=== PATIENT | male | born 1985 | race Caucasian/White ===

== ENCOUNTER 2016-08-04 13:06 | Outpatient (CLI) | payer OTHER ==
[2016-08-04] MEDS ORDERED: IOTHALAMATE MEGLUMINE 50 ML VIAL IVP ONE ×2 (13:53)
[2016-08-04] MEDS ORDERED: GADOPENTETATE DIMEGLUMINE 5 ML VIAL IVP ONE ×2 (13:53)
[2016-08-04] MEDS ORDERED: LIDOCAINE 1% 50 ML MDV SUBQ ONE ×2 (13:53)
[2016-08-04] MEDS ORDERED: BUFFERED LIDOCAINE 10 ML SYRINGE IU ONE (13:53)
--- NOTE | 2016-08-04 14:34 | XRAY Report ---
FLUOROSCOPICALLY GUIDED RIGHT HIP INJECTION FOR MR ARTHROGRAM: 08/04/2016 CLINICAL INDICATION: Right hip pain. FINDINGS: Following obtaining informed consent, the patient's right hip was prepped and draped in th e usual sterile fashion. The skin and soft tissue was anesthetized with lidocaine. A spinal needle wa s inserted into the right hip joint, and following confirmation of needle positioning, a combination of Iodinated contrast, dilute gadolinium, and lidocaine was injected intraarticularly. The patient to lerated the procedure well. No immediate complications. Spot image reveals no evidence of contrast ex travasation. IMPRESSION: SUCCESSFUL RIGHT HIP INJECTION FOR MR ARTHROGRAM. FLUOROSCOPY TIME: 44 SECONDS; 1 SPOT IMAGE OBTAINED. JOB #: [id number] EXT JOB #:[id number]
--- NOTE | 2016-08-04 16:01 | MRI Report ---
EXAM: RIGHT HIP MRI ARTHROGRAM WITH CONTRAST EXAM DATE: 08/04/2016 02:32 PM. CLINICAL HISTORY: Pain in right hip after running marathon in May 2016. Worsening pain. COMPARISON: None. TECHNIQUE: Multiplanar, multisequence T1-weighted and fluid-sensitive, small yjenb-[id number]-ddbo sequences of the hip and large ohjmw-pg-dlvd sequences of the pelvis after an arthrographic injection of dilute gadolinium, dictated under a separate exam. Other: None. FINDINGS: Bones and articular surfaces: There is contrast material within the right hip joint. The right hip la steffany appears intact. No labral tear identified. No paralabral cyst formation. No significant articula r cartilage defects are seen. No evidence of acute fracture or stress reaction. Sacroiliac joints vlad ear symmetric and within normal limits. Musculotendinous structures: There is prominent focal edema between the right greater trochanter and the overlying iliotibial band. The gluteus medius and minimus are insertions otherwise appear normal. No muscle atrophy or fatty replacement. Miscellaneous: No free fluid within the pelvis. No pathologic lymphadenopathy. Within or adjacent to the inferior margin of the prostate to the right of midline, there is a 6 x 6 x 8 mm high T2 signal p ossible cystic focus, which may be located within the lower prostate or in the region of the urogenit al diaphragm. Potential considerations include Cowper's gland cyst, less likely urethral diverticulum , utricle cyst or possibly a dilated venous structure. IMPRESSION: 1. Localized soft tissue edema and/or fluid signal in the region of the trochanteric bursa consistent with moderate trochanteric bursitis. 2. No evidence of hip labral tear or significant arthritic change. 3. Tiny high signal possible cystic focus noted at or adjacent to the inferior margin of the prostate . Considerations may include a Cowper's gland cyst, less likely urethral diverticulum, utricle cyst o r dilated venous structure. If the patient develops urinary symptoms, further workup could be pursued . [facility] Referring Provider Line: [phone] SITE ID: [id number]
== END 2016-08-04 13:07 | disposition home or self-care (01) ==
LOC: DI 13:06
PROVIDERS: ATTEND Orthopaedic Surgery
DX: M25.551 Pain in right hip (principal); R60.0 Localized edema
CPT/HCPCS: 20610; 73722; 77002; Q9961

== ENCOUNTER 2017-01-13 14:57 | Emergency (ER) | payer OTHER ==
[2017-01-13 15:06] VITALS: BP 141/88
[2017-01-13] MEDS ORDERED: LIDOCAINE 1% 2 ML VIAL ONE (15:51)
--- NOTE | 2017-01-13 16:17 | ED Physician Documentation ---
PD HPI UPPER EXT INJURY - Stated complaint Stated Complaint: L FINGER LAC - Chief complaint Chief Complaint: Laceration - History obtained from History obtained from: Patient, Family - History of Present Illness Location: Left, Finger (middle) Type of injury: Laceration Where injury occurred: Home Timing - onset: Today Timing - duration: Hours Timing - details: Abrupt onset, Still present Improved by: Rest, Immobilization Worsened by: Moving, Palpating Associated symptoms: No: Weakness, Numbness, Tingling Similar symptoms before: Diagnosis (laceration) Recently seen: Not recently seen - Additonal information Additional information: 31-year-old male was carrying a glass out to his car when he went to bring it back inside he caught it on something and it broke and lacerated his left middle finger. Review of Systems Constitutional: denies: Fever Respiratory: denies: Cough GI: denies: Vomiting Skin: reports: Laceration (s) Musculoskeletal: reports: Extremity pain Neurologic: denies: Generalized weakness, Focal weakness, Numbness PD PAST MEDICAL HISTORY - Past Medical History Past Medical History: Yes Cardiovascular: Arrhythmia Psych: Depression, Anxiety - Past Surgical History Past Surgical History: Yes HEENT: Myringotomy (tubes) - Present Medications Home Medications: Ambulatory Orders Medication Instructions Recorded Confirmed Fluoxetine HCl [Prozac] 20 mg PO DAILY 01/24/16 01/13/17 Valacyclovir HCl [Valtrex] 500 mg PO DAILY 01/13/17 01/13/17 - Allergies Allergies/Adverse Reactions: Allergies Allergy/AdvReac Type Severity Reaction Status Date / Time No Known Drug Allergies Allergy Verified 01/13/17 15:05 - Social History Does the pt smoke?: No Smoking Status: Never smoker Does the pt drink ETOH?: Yes ETOH Use: Wine, Beer, Liquor Does the pt have substance abuse?: No - Immunizations Immunizations are current?: Yes - POLST Patient has POLST: No PD ED PE NORMAL - Vitals Vital signs reviewed: Yes (hypertensive) - General General: Alert and oriented X 3, No acute distress, Well developed/nourished - HEENT HEENT: Atraumatic, PERRL - Respiratory Respiratory: No respiratory distress - Derm Derm: Normal color, Warm and dry, No rash - Extremities Extremities: No deformity, No edema, Other (There is a 2cm laceration to the volar surface of the left middle finger over the middle phlange. ) - Neuro Neuro: No motor deficit, No sensory deficit Eye Opening: Spontaneous Motor: Obeys Commands Verbal: Oriented GCS Score: 15 - Psych Psych: Normal mood, Normal affect Results - Vitals Vitals: Vital Signs - 24 hr 01/13/17 15:03 Temperature 36.9 C Heart Rate 77 Respiratory 18 Rate Blood Pressure 141/88 H O2 Saturation 99 Oxygen O2 Source Room air Procedures - Laceration (location) left middle finger Length in cm: 2 Wound type: Linear, Irregular, Clean Neurovascular status: Sensory intact, Motor intact, Vascular intact Tendon involvement: Tendon intact Anesthesia: Lidocaine 1% Wound Preparation: Hibiclens, Irrigated copiously NS, Wound explored, To the base Skin layer closure: Nylon, Interrupted, Size #-0 - enter number (4-0), Sutures - enter # (3) Other: Patient tolerated well, No complications, Neurovascular intact, Dressing applied, Tetanus UTD PD MEDICAL DECISION MAKING - ED course Complexity details: reviewed results, re-evaluated patient, considered differential, d/w patient ED course: finger laceration is sutured. Departure - Departure Disposition: 01 Home, Self Care Clinical Impression: Laceration of left middle finger Qualifiers: Encounter type: initial encounter Damage to nail status: without damage Foreign body presence: without foreign body Qualified Code(s): S61.213A - Laceration without foreign body of left middle finger without damage to nail, initial encounter Instructions: ED Laceration Hand Follow-Up: KATHRYN WOODY [Primary Care Provider] - Comments: sutures out in 7-10 days Today in the Emergency Department your blood pressure was elevated. This can happen from the stress of the visit itself, from a current illness or circumstance or from uncontrolled hypertension. If you take blood pressure medications take your usual mediations, have your blood pressure re-checked in an appropriate setting and follow up any elevation with your primary care doctor. Discharge Date/Time: 01/13/17 16:31
[2017-01-13] MEDS ORDERED: BACITRACIN OINT TOP ONE (16:29)
== END 2017-01-13 16:31 | disposition home or self-care (01) ==
LOC: ED 14:57
DX: S61.213A Laceration without foreign body of left middle finger without damage to nail, initial encounter (principal); W25.XXXA Contact with sharp glass, initial encounter; Y92.019 Unspecified place in single-family (private) house as the place of occurrence of the external cause; R03.0 Elevated blood-pressure reading, without diagnosis of hypertension
CPT/HCPCS: 12001; 99282; 99283; A9270

== ENCOUNTER 2017-01-19 09:35 | Day surgery (SDC) | payer OTHER ==
[2017-01-19] MEDS ORDERED: LACTATED RINGERS 1,000 ML IV ONE (09:52)
[2017-01-19] MEDS ORDERED: ACETAMINOPHEN 1,000 MG/100 ML 100 ML IV ONE ×2 (10:03→12:00)
[2017-01-19] MEDS ORDERED: ceFAZolin 2 GM/50 ML 2 GM/50 ML BAG IV ONE (10:03)
[2017-01-19] MEDS ORDERED: BUPIVACAINE 0.25% PF 30 ML VIAL SUBQ ONE ×2 (10:55→11:57)
[2017-01-19] MEDS ORDERED: PROPOFOL 200 MG/20 ML VIAL IVP ONE (12:00)
[2017-01-19] MEDS ORDERED: DEXAMETHASONE 4 MG/ML VIAL IVP ONE (12:00)
[2017-01-19] MEDS ORDERED: LIDOCAINE-MPF 2% 5 ML VIAL IM ONE (12:00)
[2017-01-19] MEDS ORDERED: ONDANSETRON 4 MG/2 ML VIAL IVP ONE (12:00)
[2017-01-19] MEDS ORDERED: MIDAZOLAM 2 MG/2 ML VIAL IVP ONE (12:00)
[2017-01-19] MEDS ORDERED: ROCURONIUM 50 MG/5 ML VIAL IVP ONE (12:00)
[2017-01-19] MEDS ORDERED: fentaNYL 100 MCG/2 ML VIAL IVP ONE (12:00)
[2017-01-19 12:54] VITALS: BP 118/69
--- NOTE | 2017-01-22 13:11 | OPERATIVE REPORT ---
ID#: [id number] PREOPERATIVE DIAGNOSES: Left long finger flexor digitorum profundus laceration. POSTOPERATIVE DIAGNOSES: Left long finger flexor digitorum profundus laceration. OPERATION PERFORMED: Left long finger flexor digitorum profundus repair. PRIMARY SURGEON: Radha Meléndez MD ANESTHESIA PROVIDER: Amaris Anaya CRNA CIRCULATING NURSE: Tiffany Humphrey. AIRPORT MANAGER: Camila Trotter RN, BSN. ANESTHESIA: General via endotracheal tube. IV FLUIDS: 900 mL lactated Ringer's. ESTIMATED BLOOD LOSS: 1 mL ANTIBIOTICS: Ancef 2gm IV. TOURNIQUET: To left arm at 200 mmHg for 70 minutes. IMPLANTS 1. Ethibond suture. 2. Prolene suture. SPECIMENS: None. COMPLICATIONS: None. INDICATIONS: This is a 31-year-old male who sustained a laceration to his volar left long finger over the middle phalanx 6 days ago. The patient noted inability to flex his distal interphalangeal joint following this injury and presented to the orthopedic surgery clinic. The risks, benefits, indications, expectations, and treatment options were discussed with the patient to include the risks of surgery such as infection, bleeding, damage to neurovascular structures, need for additional surgery, stiffness, recurrent tendon tear, tendon adhesions, persistent pain, deep vein thrombosis, pulmonary embolism, loss of limb, and loss of life. All questions were answered, the patient elected to proceed with surgery, and informed consent was obtained. DESCRIPTION OF PROCEDURE: The patient was met in the preoperative holding area on the morning of surgery, where we confirmed that we had the correct patient, planned to do the correct procedure, and had the correct extremity, which was the left long finger identified. Prior to the patient receiving any medications , the operative extremity was initialed by myself. The patient was then brought back to the operating room in stable condition and placed supine on the operating room table. All bony prominences were well padded, and sequential compression devices were placed on the bilateral lower extremities. General anesthesia was induced without complication, and initially an LMA was placed. It should be noted that during the case the patient was moving, and therefore a decision was made to place an endotracheal tube to allow for paralysis. The left upper extremity was then prepped and draped in the usual sterile fashion. After a final draping, a surgical timeout was held, where we confirmed that we had the correct patient, planned to do the correct procedure, and had the correct extremity, which is the left upper extremity, specifically the long finger identified. It was also confirmed that all necessary gear was in the room and confirmed sterile, that patient received preoperative antibiotics of Ancef 2 grams IV, and that no members of the operative team had any concerns. We began by exsanguinating the left upper extremity and inflating the tourniquet to 200 mmHg. I then extended the preexisting horizontal wound over the middle phalanx, such that the incision was in a Wu style extending over the distal phalanx and proximal to the PIP joint. After sharply incising the skin, I utilized bipolar cautery to dissect through the subcuticular layer. I elevated full thickness flaps to enable visualization of the flexor tendons. Immediately on visualizing the flexor tendons, it was apparent that the cruciate crystal had been lacerated in an oblique manner and that the underlying flexor digitorum profundus had been lacerated, with the proximal aspect retracted to just proximal to the A4 crystal. The distal stump was retracted distally as well to the A5 crystal. The finger was then flexed, and the flexor tendon was milked from the distal aspect of the tendon sheath such that it came into the area of the wound and was held in place with a 21-gauge needle. Proximally we were unable to milk the tendon through the crysatl; therefore the crystal was released on the lateral aspect, which allowed for the tendon to have enough excursion to come up to the area of laceration. We held the tendon in place again with a 21-gauge needle. Then utilizing 4-0 Ethibond in a modified Smith technique, I performed a tendon repair, such that the 2 ends of the tendon were approximated. The epitendinous layer was then closed utilizing a running 6-0 Prolene suture. We then ranged the finger, and showed the significant gapping of the flexor tendon. I then performed tenodesis of the hand , which showed appropriate cascade of the fingers and appropriate flexion with wrist extension. We then attempted to repair the crystal; however, the repair was too tight to enable the flexor tendon to pass easily. Therefore, a decision was made not to repair this, and there was no obvious bowstringing of the tendon. The wound was then thoroughly irrigated. The skin was then closed utilizing 3-0 nylon in a horizontal mattress fashion. A digital block with 4 mL of 0.25% bupivacaine without epinephrine was then performed. The wound was then dressed with sterile Xeroform, plain gauze, and Webril. The patient was then placed into a dorsal blocking splint with his wrist and fingers in a flexed position to avoid tension on the repair. The patient was awakened from general anesthesia without complication and taken to the PACU in stable condition. All sponge counts and needle counts were correct at the conclusion of the case. POSTOPERATIVE PLAN: The patient will remain in his splint until he is seen in the clinic on postoperative day #3, at which time we will do a wound check, and then he will be seen by Occupational Therapy for a Thermoplast splint and to begin early gentle finger rehab per the flexor tendon repair protocol. TD: 01/20/2017 17:06 HAYLEE
== END 2017-01-19 09:36 | disposition home or self-care (01) ==
LOC: SDS 09:35
PROVIDERS: ATTEND Orthopaedic Surgery
PROC: 0LQ80ZZ Repair Left Hand Tendon, Open Approach (ICD-10-PCS; principal; 2017-01-19 10:30)
DX: S66.123A Laceration of flexor muscle, fascia and tendon of left middle finger at wrist and hand level, initial encounter (principal); I45.10 Unspecified right bundle-branch block; F41.9 Anxiety disorder, unspecified; F32.9 Major depressive disorder, single episode, unspecified; W45.8XXA Other foreign body or object entering through skin, initial encounter
CPT/HCPCS: 26350; J0131; J0690; J7120

== ENCOUNTER 2018-04-04 15:46 | Emergency (ER) | payer OTHER ==
[2018-04-04] MEDS ORDERED: SUMAtriptan 6 MG/0.5 ML VIAL SUBQ STA (16:24)
--- NOTE | 2018-04-04 16:25 | ED Physician Documentation ---
PD HPI HEADACHE - Stated complaint Stated Complaint: DIZZY/BLURRED VISION/NAUSEA/ATKINSON - Chief complaint Chief Complaint: Neuro - History obtained from History obtained from: Patient - History of Present Illness Timing - onset: Other (This is a 32-year-old gentleman with history of a single migraine in the past who held a gradual onset frontal and left-sided headache with eye pressure and light sensitivity and nausea over the last few hours. His vision is blurry and he feels occasionally like he is spinning. He denies respiratory complaints or fever.) Review of Systems Constitutional: denies: Fever, Chills, Myalgias Ears: denies: Loss of hearing, Ear pain, Drainage/discharge Nose: denies: Rhinorrhea / runny nose, Congestion Throat: denies: Sore throat PD PAST MEDICAL HISTORY - Past Medical History Cardiovascular: Other Respiratory: None Endocrine/Autoimmune: None GI: Other : None HEENT: None Psych: Depression Musculoskeletal: Other Derm: Other - Past Surgical History Past Surgical History: Yes General: EGD, Other HEENT: Myringotomy (tubes) - Present Medications Home Medications: Ambulatory Orders Medication Instructions Recorded Confirmed Fluoxetine HCl [Prozac] 20 mg PO DAILY 01/24/16 01/19/17 Valacyclovir HCl [Valtrex] 500 mg PO DAILY 01/13/17 01/19/17 Clotrimazole [Clotrimazole AF] 28 gm TP DAILY 01/18/17 01/19/17 Ibuprofen [Motrin] 600 mg PO Q6H PRN 01/18/17 01/19/17 Hydrocodone/Acetaminophen 1 - 2 each PO Q6H PRN #7 tablet 04/04/18 [Hydrocodon-Acetaminophen 5-325] Metoclopramide [Reglan] 10 mg PO Q6H PRN #20 tablet 04/04/18 - Allergies Allergies/Adverse Reactions: Allergies Allergy/AdvReac Type Severity Reaction Status Date / Time No Known Drug Allergies Allergy Verified 04/04/18 15:54 - Social History Does the pt smoke?: No Smoking Status: Never smoker Does the pt drink ETOH?: Yes Does the pt have substance abuse?: No - Immunizations Immunizations are current?: Yes - POLST Patient has POLST: No PD ED PE NORMAL - Vitals Vital signs reviewed: Yes - General General: Alert and oriented X 3, Other (Uncomfortable and photophobic) - HEENT HEENT: PERRL, EOMI, Pharynx benign - Neck Neck: Supple, no meningeal sign, No bony TTP - Derm Derm: No rash - Extremities Extremities: No deformity, No tenderness to palpate, No calf tenderness / cord - Neuro Neuro: Alert and oriented X 3, Normal speech Eye Opening: Spontaneous Motor: Obeys Commands Verbal: Oriented GCS Score: 15 - Psych Psych: Normal mood, Normal affect Results - Vitals Vitals: Vital Signs - 24 hr 04/04/18 15:51 Temperature 36.8 C Heart Rate 75 Respiratory 18 Rate Blood Pressure 148/83 H O2 Saturation 99 Oxygen O2 Source Room air - Labs Labs: Laboratory Tests 04/04/18 16:54 POC Whole Bld Glucose 78 - Rads (name of study) CT Head Radiology: EMP read contemporaneously (normal) PD MEDICAL DECISION MAKING - ED course ED course: This is a 32-year-old gentleman who has a gradual onset headache today with photophobia and nausea most consistent with migraine. He wanted to be able to drive after medications it was initially administered Imitrex subcutaneously without relief and this was followed by Toradol. He is never had cranial imaging so CT imaging was undertaken without pertinent positive findings. Departure - Departure Disposition: 01 Home, Self Care Clinical Impression: Migraine Qualifiers: Migraine type: without aura Status migrainosus presence: with status migrainosus Intractability: intractable Qualified Code(s): G43.011 - Migraine without aura, intractable, with status migrainosus Condition: Good Record reviewed to determine appropriate education?: Yes Instructions: ED Headache Migraine Prescriptions: Hydrocodone/Acetaminophen [Hydrocodon-Acetaminophen 5-325] 1 - 2 each PO Q6H PRN #7 tablet PRN Reason: pain Metoclopramide [Reglan] 10 mg PO Q6H PRN #20 tablet PRN Reason: nausea or headache Comments: Return tomorrow if not better, anytime for new or worsening symptoms. Follow-up with your doctor in the clinic, next available appointment. Your blood pressure was elevated today on check into the emergency department. This does not mean that you have hypertension, it is a common phenomenon to come to the emergency department and have elevated blood pressure. I recommend that you see your primary care physician within the week to have it rechecked when you are feeling better.
--- NOTE | 2018-04-04 17:00 | CT Report ---
Reason: headache Procedure Date: 04/04/2018 Accession Number: [id number] / [id number] Procedure: CT - HEAD WO CPT Code: FULL RESULT: EXAM: CT HEAD EXAM DATE: 04/04/2018 04:41 PM. CLINICAL HISTORY: Headache. COMPARISON: None. TECHNIQUE: Multiaxial CT images were obtained from the foramen magnum to the vertex. Reformats: Sagittal and coronal. IV contrast: None. In accordance with CT protocol optimization, one or more of the following dose reduction techniques were utilized for this exam: automated exposure control, adjustment of mA and/or KV based on patient size, or use of iterative reconstructive technique. FINDINGS: Parenchyma: No intraparenchymal hemorrhage. No evidence of mass, midline shift, or CT findings of infarction. Zafar-white differentiation is distinct. Extraaxial Spaces: Normal for age. No subdural or epidural collections. Ventricles: Normal in size and position. Sinuses and Orbits: Imaged paranasal sinuses, orbits, and mastoids show no significant abnormality. Bones: Unremarkable. Other: None. IMPRESSION: Normal head CT. [facility]
[2018-04-04] MEDS ORDERED: KETOROLAC 60 MG/2 ML VIAL IM STA (17:23)
[2018-04-04 18:10] VITALS: BP 134/74
== END 2018-04-04 18:09 | disposition home or self-care (01) ==
LOC: ED 15:46
DX: G43.011 Migraine without aura, intractable, with status migrainosus (principal); R03.0 Elevated blood-pressure reading, without diagnosis of hypertension
CPT/HCPCS: 70450; 96372; 99283

== ENCOUNTER 2018-06-09 16:57 | Emergency (ER) | payer OTHER ==
[2018-06-09] MEDS ORDERED: KETOROLAC 30 MG/ML VIAL IVP STA (18:10)
[2018-06-09] MEDS ORDERED: ONDANSETRON 4 MG/2 ML VIAL IVP STA (18:10)
[2018-06-09] MEDS ORDERED: LOPERAMIDE 2 MG CAPSULE PO STA (18:10)
[2018-06-09] MEDS ORDERED: SODIUM CHLORIDE 0.9% 1,000 ML IV ONE (18:10)
--- NOTE | 2018-06-09 18:12 | ED Physician Documentation ---
PD HPI NVD - Stated complaint Stated Complaint: N/V HEADACHE/DIZZY - Chief complaint Chief Complaint: Abd Pain - History obtained from History obtained from: Patient - History of Present Illness Timing - onset: Today (He became acutely ill early this morning with vomiting diarrhea and stomach cramps and headache. No fevers. He kind of hurts all over. His has a similar illness, she became sick yesterday and is improving. No recent travel.) Review of Systems Constitutional: reports: Chills, Myalgias, Fatigue Cardiac: denies: Chest pain / pressure, Palpitations Respiratory: denies: Dyspnea, Cough GI: reports: Abdominal Pain, Nausea, Vomiting, Diarrhea PD PAST MEDICAL HISTORY - Past Medical History Cardiovascular: Other Respiratory: None Endocrine/Autoimmune: None GI: Other : None HEENT: None Psych: Depression Musculoskeletal: Other Derm: Other Other Past Medical History: palpitations - Past Surgical History Past Surgical History: Yes General: EGD, Other HEENT: Myringotomy (tubes) - Present Medications Home Medications: Ambulatory Orders Medication Instructions Recorded Confirmed Fluoxetine HCl [Prozac] 20 mg PO DAILY 01/24/16 01/19/17 Valacyclovir HCl [Valtrex] 500 mg PO DAILY 01/13/17 01/19/17 Clotrimazole [Clotrimazole AF] 28 gm TP DAILY 01/18/17 01/19/17 Ibuprofen [Motrin] 600 mg PO Q6H PRN 01/18/17 01/19/17 Hydrocodone/Acetaminophen 1 - 2 each PO Q6H PRN #7 tablet 04/04/18 [Hydrocodon-Acetaminophen 5-325] Metoclopramide [Reglan] 10 mg PO Q6H PRN #20 tablet 04/04/18 Loperamide [Imodium] 2 mg PO QID PRN #10 capsule 06/09/18 Ondansetron Odt [Zofran] 4 mg TL Q6H PRN #10 tablet 06/09/18 - Allergies Allergies/Adverse Reactions: Allergies Allergy/AdvReac Type Severity Reaction Status Date / Time No Known Drug Allergies Allergy Verified 04/04/18 15:54 - Social History Does the pt smoke?: No Smoking Status: Never smoker Does the pt drink ETOH?: Yes Does the pt have substance abuse?: No - Immunizations Immunizations are current?: Yes - POLST Patient has POLST: No PD ED PE NORMAL - Vitals Vital signs reviewed: Yes - General General: Alert and oriented X 3, No acute distress - HEENT HEENT: Other (dry MM) - Cardiac Cardiac: RRR, No murmur - Respiratory Respiratory: No respiratory distress, Clear bilaterally - Abdomen Abdomen: Soft, Non tender - Derm Derm: No rash, Other (clammy) - Neuro Neuro: Alert and oriented X 3, Normal speech Results - Vitals Vitals: Vital Signs - 24 hr 06/09/18 17:19 Temperature 37.5 C Heart Rate 103 H Respiratory 14 Rate Blood Pressure 115/66 O2 Saturation 97 Oxygen O2 Source Room air - Labs Labs: Laboratory Tests 06/09/18 18:15 Sodium 136 Potassium 3.7 Chloride 102 Carbon Dioxide 25 Anion Gap 9.0 BUN 16 Creatinine 1.0 Estimated GFR (MDRD) 87 L Glucose 117 H Calcium 8.8 Total Bilirubin 2.0 H AST 18 ALT 22 Alkaline Phosphatase 54 Total Protein 8.2 Albumin 4.3 Globulin 3.9 Albumin/Globulin Ratio 1.1 Lipase 24 PD MEDICAL DECISION MAKING - ED course ED course: This is a young man with viral gastroenteritis evident by lack of tenderness, typical symptoms, and with similar illness. After the administration of IV fluids, Zofran, Toradol, and Imodium he was feeling much better and remained nontender prior to discharge. He passed an oral challenge. Departure - Departure Disposition: 01 Home, Self Care Clinical Impression: Gastroenteritis Condition: Good Record reviewed to determine appropriate education?: Yes Instructions: ED Gastroenteritis Viral Prescriptions: Loperamide [Imodium] 2 mg PO QID PRN #10 capsule PRN Reason: Diarrhea Ondansetron Odt [Zofran] 4 mg TL Q6H PRN #10 tablet PRN Reason: Nausea / Vomiting Comments: As discussed, he should be better in the next 12 to 24 hours. Please return early to mid day tomorrow if not better in that timeframe, sooner if worse or if new symptoms develop. Forms: Activity restrictions
[2018-06-09] MEDS: LACTATED RINGERS 1,000 ML IV STA ×2 (18:25→18:49)
[2018-06-09 18:32] LABS: ALBUMIN 4.3 g/dL (3.2-5.5); ALBUMIN/GLOBULIN RATIO 1.1 (1.0-2.2); CALCIUM 8.8 mg/dL (8.5-10.3); TOTAL PROTEIN 8.2 g/dL (6.7-8.2)
[2018-06-09] MEDS ORDERED: ONDANSETRON ODT 4 MG Prepack 2 TL STA (18:49)
[2018-06-09 20:03] VITALS: BP 110/63
== END 2018-06-09 19:45 | disposition home or self-care (01) ==
LOC: ED 16:57
DX: K52.9 Noninfective gastroenteritis and colitis, unspecified (principal)
CPT/HCPCS: 36415; 80053; 83690; 96361; 96374; 96375; 99283; A9270; J7120

== ENCOUNTER 2018-08-03 20:21 | Emergency (ER) | payer OTHER ==
--- NOTE | 2018-08-03 20:42 | ED Physician Documentation ---
PD HPI CHEST PAIN - Stated complaint Stated Complaint: CHEST PX - Chief complaint Chief Complaint: Cardiac - History obtained from History obtained from: Patient - History of Present Illness Timing - onset: Today (at 7pm while playing video games with aching pain left upper chest to strenum with stabbing quality. Some left arm weakness and tingling, but resolved. No radiation. Recent OM on augmentin.) Review of Systems Constitutional: reports: Reviewed and negative Eyes: reports: Reviewed and negative Ears: reports: Reviewed and negative Nose: reports: Reviewed and negative Throat: reports: Reviewed and negative Cardiac: reports: Chest pain / pressure, Reviewed and negative Respiratory: reports: Reviewed and negative PD PAST MEDICAL HISTORY - Past Medical History Past Medical History: No Cardiovascular: Other Respiratory: None Endocrine/Autoimmune: None GI: Other : None HEENT: None Psych: Depression Musculoskeletal: Other Derm: Other - Past Surgical History Past Surgical History: Yes General: EGD, Other HEENT: Myringotomy (tubes) - Present Medications Home Medications: Ambulatory Orders Medication Instructions Recorded Confirmed Fluoxetine HCl [Prozac] 20 mg PO DAILY 01/24/16 01/19/17 Valacyclovir HCl [Valtrex] 500 mg PO DAILY 01/13/17 01/19/17 Clotrimazole [Clotrimazole AF] 28 gm TP DAILY 01/18/17 01/19/17 Ibuprofen [Motrin] 600 mg PO Q6H PRN 01/18/17 01/19/17 Hydrocodone/Acetaminophen 1 - 2 each PO Q6H PRN #7 tablet 04/04/18 [Hydrocodon-Acetaminophen 5-325] Metoclopramide [Reglan] 10 mg PO Q6H PRN #20 tablet 04/04/18 Loperamide [Imodium] 2 mg PO QID PRN #10 capsule 06/09/18 Ondansetron Odt [Zofran] 4 mg TL Q6H PRN #10 tablet 06/09/18 - Allergies Allergies/Adverse Reactions: Allergies Allergy/AdvReac Type Severity Reaction Status Date / Time No Known Drug Allergies Allergy Verified 08/03/18 20:40 - Social History Does the pt smoke?: No Smoking Status: Never smoker Does the pt drink ETOH?: Yes Does the pt have substance abuse?: No - Immunizations Immunizations are current?: Yes - POLST Patient has POLST: No PD ED PE NORMAL - Vitals Vital signs reviewed: Yes - General General: Alert and oriented X 3, No acute distress - HEENT HEENT: PERRL, EOMI - Neck Neck: Supple, no meningeal sign, No bony TTP - Cardiac Cardiac: RRR, No murmur - Respiratory Respiratory: No respiratory distress, Clear bilaterally - Abdomen Abdomen: Non tender - Extremities Extremities: No edema, No calf tenderness / cord - Neuro Neuro: Alert and oriented X 3, Normal speech Results - Vitals Vitals: Vital Signs - 24 hr 08/03/18 08/03/18 20:36 21:13 Temperature 36.4 C L Heart Rate 77 72 Respiratory 16 16 Rate Blood Pressure 154/88 H 141/88 H O2 Saturation 100 99 Oxygen O2 Source Room air - EKG (time done) 1941 Rate: Rate (enter#) (72) Rhythm: NSR [place]: Normal Intervals: Normal [place] QRS: Normal Ischemia: Normal ST segments Computer interpretation: Agree with computer - Labs Labs: Laboratory Tests 08/03/18 19:57 Troponin I < 0.04 - Rads (name of study) 2v chest Radiology: EMP read contemporaneously (normal) PD MEDICAL DECISION MAKING - ED course ED course: I considered pulmonary embolism in this patient. Clinically the pretest probability of pulmonary embolism is less than 15%. I applied to the PERC rules as follows: The patient's age is under 50, heart rate less than 100, oxygen saturation greater than 94%, the patient does not have a history of DVT or PE. Patient has no recent trauma or surgery. The patient has no hemoptysis. The patient is not on exogenous estrogens. The patient does not have clinical signs suggesting DVT. As such the patient ruled out for pulmonary embolism by PERC criteria. I considered aortic dissection in this patient. The patient has a much more likely alternative diagnosis. The patient has equal radial and pedal pulses and has no neurologic symptoms. Departure - Departure Disposition: 01 Home, Self Care Clinical Impression: Atypical chest pain Condition: Good Record reviewed to determine appropriate education?: Yes Plan of Treatment: Call your doctor to arrange a follow-up appointment, make the next available appointment. In the interim, return anytime if worse or if new symptoms develop. Instructions: ED Chest Pain Atypical Unkn Cause
--- NOTE | 2018-08-03 21:25 | XRAY Report ---
Reason: chest pain Procedure Date: 08/03/2018 Accession Number: [id number] / [id number] Procedure: XR - Chest 2 View X-Ray CPT Code: 75102 FULL RESULT: EXAM: CHEST RADIOGRAPHY EXAM DATE: 08/03/2018 09:15 PM. CLINICAL HISTORY: Chest pain. COMPARISON: CHEST 2 VIEW PA/LAT 01/24/2016 5:16 PM. TECHNIQUE: 2 views. FINDINGS: Lungs/Pleura: No focal opacities evident. No pleural effusion. No pneumothorax. Normal volumes. Mediastinum: Heart and mediastinal contours are unremarkable. Other: None. IMPRESSION: Normal 2-view chest radiography. RADIA
[2018-08-03 21:47] VITALS: BP 129/79
== END 2018-08-03 21:47 | disposition home or self-care (01) ==
LOC: ED 20:21
DX: R07.89 Other chest pain (principal)
CPT/HCPCS: 71046; 84484; 93005; 99283

== ENCOUNTER 2018-08-15 13:02 | Outpatient (CLI) | payer OTHER | END 2018-08-15 13:03 | disposition critical access hospital (66) | LOC: EMS 13:02 | PROVIDERS: ATTEND Surgery | DX: M54.2 Cervicalgia (principal); V99.XXXA Unspecified transport accident, initial encounter; Y92.413 State road as the place of occurrence of the external cause | CPT/HCPCS: A0425; A0429 ==

== ENCOUNTER 2018-08-15 13:33 | Emergency (ER) | payer OTHER ==
[2018-08-15] MEDS ORDERED: CYCLOBENZAPRINE 10 MG TABLET PO STA (13:52)
[2018-08-15] MEDS ORDERED: MELOXICAM 7.5 MG TABLET PO STA (13:52)
[2018-08-15 13:53] VITALS: BP 151/78
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
== END 2018-08-15 14:14 | disposition home or self-care (01) ==
LOC: EDUNIT# → EDBD → ED 13:33
DX: S39.012A Strain of muscle, fascia and tendon of lower back, initial encounter (principal); V89.2XXA Person injured in unspecified motor-vehicle accident, traffic, initial encounter
CPT/HCPCS: 99282; 99284; A9270

== ENCOUNTER 2018-09-05 | Outpatient (CLI) | payer OTHER | END 2018-09-05 23:18 | disposition critical access hospital (66) | CPT/HCPCS: A0425; A0427 ==

== ENCOUNTER 2018-09-05 23:26 | Emergency (ER) | payer OTHER ==
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
[2018-09-06] MEDS ORDERED: HYDROmorphone 1 MG/ML CARPUJECT IVP STA (01:29)
--- NOTE | 2018-09-06 02:18 | XRAY Report ---
Reason: back pain Procedure Date: 09/06/2018 Accession Number: [id number] / [id number] Procedure: XR - Chest 2 View X-Ray CPT Code: 24270 FULL RESULT: EXAM: CHEST RADIOGRAPHY EXAM DATE: 09/06/2018 02:04 AM. CLINICAL HISTORY: Pain COMPARISON: CHEST 2 VIEW PA/LAT 01/24/2016 5:16 PM CHEST 2 VIEW 08/03/2018 9:13 PM. TECHNIQUE: 2 views. FINDINGS: Lungs/Pleura: No focal opacities evident. No pleural effusion. No pneumothorax. Normal volumes. Mediastinum: Heart and mediastinal contours are unremarkable. Other: None. IMPRESSION: Stable normal appearance of the chest without acute cardiopulmonary abnormality. RADIA
--- NOTE | 2018-09-06 02:20 | XRAY Report ---
Reason: back pain Procedure Date: 09/06/2018 Accession Number: [id number] / [id number] Procedure: XR - Lumbar Spine 2 View CPT Code: FULL RESULT: EXAM: LUMBOSACRAL SPINE RADIOGRAPHY EXAM DATE: 09/06/2018 02:00 AM CLINICAL HISTORY: Low back pain. COMPARISONS: None. TECHNIQUE: 3 views. FINDINGS: Alignment: No subluxation. Loss of lumbar lordosis. Bones: There are six omc-[id number] lumbar-type vertebral bodies. Lower most lumbar-type vertebral body is labeled as lumbarized S1. Right-sided sacralization of the lumbarized S1. Disks: Normal. Disk heights are maintained. Facets: No degenerative changes. Sacroiliac Joints: Unremarkable. Soft Tissues: Normal. The visualized bowel gas pattern is normal. IMPRESSION: No acute bone abnormality. Nonspecific straightening of the spine may be positional and/or related to muscle spasm. RADIA
[2018-09-06] MEDS ORDERED: oxyCODONE 5 MG TABLET PO STA (03:26)
[2018-09-06] MEDS ORDERED: diazePAM 5 MG TABLET PO STA (03:26)
[2018-09-06] MEDS ORDERED: ONDANSETRON 4 MG/2 ML VIAL IVP STA (03:34)
[2018-09-06 04:15] VITALS: BP 122/82
== END 2018-09-06 04:15 | disposition home or self-care (01) ==
LOC: EDUNIT# → ED 23:26
DX: S39.012A Strain of muscle, fascia and tendon of lower back, initial encounter (principal); W17.89XA Other fall from one level to another, initial encounter; V89.2XXS Person injured in unspecified motor-vehicle accident, traffic, sequela
CPT/HCPCS: 71046; 72100; 96374; 96375; 99284; A9270; J1170

== ENCOUNTER 2018-09-06 17:07 | Outpatient (CLI) | payer OTHER ==
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
== END 2018-09-06 17:08 | disposition home or self-care (01) ==
LOC: DI 17:07
DX: M54.2 Cervicalgia (principal)
CPT/HCPCS: 72141

== ENCOUNTER 2019-09-08 21:06 | Emergency (ER) | payer OTHER ==
--- NOTE | 2019-09-08 21:20 | ED Physician Documentation ---
PD HPI HEENT - Stated complaint Stated Complaint: NUMB FACE, PRESSURE IN HEAD - Chief complaint Chief Complaint: Neuro PD PAST MEDICAL HISTORY - Past Medical History Cardiovascular: Other Respiratory: None Neuro: None Endocrine/Autoimmune: None GI: Other : None HEENT: None Psych: Depression Musculoskeletal: Other Derm: Other - Past Surgical History Past Surgical History: Yes General: EGD, Other HEENT: Myringotomy (tubes) - Present Medications Home Medications: Ambulatory Orders Medication Instructions Recorded Confirmed No Known Home Medications 09/08/19 09/08/19 - Allergies Allergies/Adverse Reactions: Allergies Allergy/AdvReac Type Severity Reaction Status Date / Time No Known Drug Allergies Allergy Verified 09/05/18 23:41 - Social History Does the pt smoke?: No Smoking Status: Never smoker Does the pt drink ETOH?: Yes Does the pt have substance abuse?: No - Immunizations Immunizations are current?: Yes - POLST Patient has POLST: No Results - Vitals Vitals: Vital Signs - 24 hr 09/08/19 21:10 Temperature 36.4 C L Heart Rate 84 Respiratory 18 Rate Blood Pressure 159/95 H O2 Saturation 98 Oxygen O2 Source Room air
--- NOTE | 2019-09-08 21:41 | ED Physician Documentation ---
History of Present Illness - Stated complaint Stated Complaint: NUMB FACE, PRESSURE IN HEAD - Chief complaint Chief Complaint: Neuro - History obtained from History obtained from: Patient - History of Present Illness Timing: Today Pain level now: 4 Improved by: nothing Worsened by: no exacerbating factors - Additonal information Additional information: This morning, patient woke up with dizziness that lasted approximately 30 minutes; feels like on a swaying boat. 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 He is having difficulty focusing thoughts/concentrating tonight. He has photophobia. He notes "major mood swing" x 1 week ago. Review of Systems Constitutional: denies: Fever, Chills, Myalgias, Fatigue, Sweats Eyes: reports: Photophobia. denies: Loss of vision, Decreased vision Cardiac: reports: Reviewed and negative Respiratory: reports: Reviewed and negative GI: reports: Nausea. denies: Abdominal Pain, Vomiting Neurologic: reports: Numbness (left facial numbness), Headache. denies: Generalized weakness, Focal weakness, Head injury Psychiatric: denies: Suicidal, Hallucinations, Delusions PD PAST MEDICAL HISTORY - Past Medical History Past Medical History: Yes Cardiovascular: Other Respiratory: None Neuro: None Endocrine/Autoimmune: None GI: Other : None HEENT: None Psych: Depression Musculoskeletal: Other Derm: Other - Past Surgical History Past Surgical History: Yes General: EGD, Other HEENT: Myringotomy (tubes) - Present Medications Home Medications: Ambulatory Orders Medication Instructions Recorded Confirmed No Known Home Medications 09/08/19 09/08/19 - Allergies Allergies/Adverse Reactions: Allergies Allergy/AdvReac Type Severity Reaction Status Date / Time No Known Drug Allergies Allergy Verified 09/05/18 23:41 - Social History Does the pt smoke?: No Smoking Status: Never smoker Does the pt drink ETOH?: Yes Does the pt have substance abuse?: No - Immunizations Immunizations are current?: Yes - POLST Patient has POLST: No PD ED PE NORMAL - Vitals Vital signs reviewed: Yes - General General: Alert and oriented X 3, No acute distress, Well developed/nourished - HEENT HEENT: Atraumatic, PERRL, EOMI, Ears normal, Moist mucous membranes, Pharynx benign, Other (mild photophobia) - Neck Neck: Supple, no meningeal sign - Cardiac Cardiac: RRR, No murmur - Respiratory Respiratory: No respiratory distress, Clear bilaterally - Abdomen Abdomen: Soft, Non tender - Derm Derm: Normal color, Warm and dry, No rash - Neuro Neuro: Alert and oriented X 3, compliance testing analyst 2-12 intact, No motor deficit, No sensory deficit, Normal speech Eye Opening: Spontaneous Motor: Obeys Commands Verbal: Oriented GCS Score: 15 - Psych Psych: Normal mood, Normal affect Results - Vitals Vitals: Vital Signs - 24 hr 09/08/19 09/08/19 09/08/19 21:10 22:10 23:54 Temperature 36.4 C L Heart Rate 84 65 60 Respiratory 18 Rate Blood Pressure 159/95 H 125/81 H 129/78 O2 Saturation 98 97 98 09/09/19 09/09/19 01:00 02:04 Temperature Heart Rate 60 58 L Respiratory 18 16 Rate Blood Pressure 128/90 H 131/95 H O2 Saturation 98 99 Oxygen O2 Source Room air - Labs Labs: Laboratory Tests 09/08/19 09/08/19 21:47 21:47 WBC 8.8 RBC 4.65 L Hgb 13.9 L Hct 40.3 L MCV 86.7 MCH 29.9 MCHC 34.5 RDW 11.9 L Plt Count 306 MPV 9.2 Neut # (Auto) 4.5 Lymph # (Auto) 3.0 [place] # (Auto) 0.8 Eos # (Auto) 0.4 Baso # (Auto) 0.1 Absolute Nucleated RBC 0.00 Nucleated RBC % 0.0 Sodium 138 Potassium 3.7 Chloride 103 Carbon Dioxide 26 Anion Gap 9.0 BUN 16 Creatinine 0.9 Estimated GFR (MDRD) 97 Glucose 139 H Calcium 9.1 Total Bilirubin 0.8 AST 16 ALT 21 Alkaline Phosphatase 48 Total Protein 7.2 Albumin 4.3 Globulin 2.9 Albumin/Globulin Ratio 1.5 Lipase 34 - Rads (name of study) CT head Radiology: Prelim report reviewed, See rad report PD MEDICAL DECISION MAKING - ED course Complexity details: reviewed results, re-evaluated patient, considered differential, d/w patient ED course: no neurologic findings on exam although mild photophobia present. CTH without contrast concerning for "possible mass in left cerebellopontine angle" (per radiologist's interpretation), but subsequent CTH with contrast interpreted by radiologist as "no intracranial lesion to account for symptoms. the left cerebellopontine angle finding on the prior study represents artifact." Patient declines medications for symptoms (specific medications weren't presented, as patient declined when I asked if he wanted medication for his symptoms such as nausea, headache); patient says he isn't concerned at this time with symptom control, but was worried about what might be causing the symptoms. He says he spoke to one of his primary care providers and the possibility of an emergent process such as brain tumor was raised, and patient is reassured that, at this time, there are no such concerning findings. I instructed him to return if worse, but stressed the importance of f/u with PMD for further evaluation to possibly include further testing or referral to a specialist (such as neurology). Departure - Departure Disposition: 01 Home, Self Care Clinical Impression: Dizziness Condition: Good Instructions: ED Dizziness [facility] Follow-Up: Keith Spangler MD [Primary Care Provider] - (Call to arrange for next available appointment) Discharge Date/Time: 09/09/19 02:04
[2019-09-08 21:52] LABS: BASOPHILS # (AUTO) 0.1 10^3/uL (0.0-0.1); BASOPHILS % (AUTO) 0.6 %; EOSINOPHILS # (AUTO) 0.4 10^3/uL (0.0-0.7); EOSINOPHILS % (AUTO) 4.8 %; HGB - HEMOGLOBIN 13.9 g/dL (14.0-18.0); LYMPHOCYTES % (AUTO) 34.1 %; MEAN CORPUSCULAR HEMOGLOBIN 29.9 pg (27.0-31.0); MEAN CORPUSCULAR HGB CONC 34.5 g/dL (32.0-36.0); MEAN CORPUSCULAR VOLUME 86.7 fL (80.0-94.0); MEAN PLATELET VOLUME 9.2 fL (7.4-11.4); MONOCYTES # (AUTO) 0.8 10^3/uL (0.0-1.0); MONOCYTES % (AUTO) 8.7 %; NEUTROPHILS # (AUTO) 4.5 10^3/uL (1.5-6.6); NEUTROPHILS % (AUTO) 51.5 %; PLT - PLATELET COUNT 306 10^3/uL (130-450); RED BLOOD COUNT 4.65 10^6/uL (4.70-6.10); RED CELL DISTRIBUTION WIDTH 11.9 % (12.0-15.0); WHITE BLOOD COUNT 8.8 x10^3/uL (4.8-10.8)
[2019-09-08 22:05] LABS: ALBUMIN 4.3 g/dL (3.2-5.5); ALBUMIN/GLOBULIN RATIO 1.5 (1.0-2.2); BILIRUBIN,TOTAL 0.8 mg/dL (0.2-1.0); CALCIUM 9.1 mg/dL (8.5-10.3); CREATININE 0.9 mg/dL (0.6-1.2); TOTAL PROTEIN 7.2 g/dL (6.7-8.2)
[2019-09-09] MEDS ORDERED: IOVERSOL 320 100 ML VIAL IVP ONE ×2 (00:16→00:43)
[2019-09-09 02:05] VITALS: BP 131/95
--- NOTE | 2019-09-09 08:23 | CT Report ---
PROCEDURE: HEAD WO INDICATIONS: headache, dizziness TECHNIQUE: Noncontrast 4.5 mm thick angled axial sections acquired from the foramen magnum to the vertex. For r adiation dose reduction, the following was used: automated exposure control, adjustment of mA and/or kV according to patient size. COMPARISON: 04/04/2018. FINDINGS: Image quality: Excellent. CSF spaces: Basal cisterns are patent. No extra-axial fluid collections. Ventricles are normal in size and shape. Brain: No midline shift. No acute intracranial hemorrhage. Possible, subtle left cerebellopontine a ngle mass measuring approximately 1.2 x 2.2 cm in transverse dimension measured on axial image 10, se jeremy 5. This may represent volume averaging with adjacent cerebellum. Zafar-white matter interface is normal. Skull and face: Calvarium and visualized facial bones are intact, without suspicious lesions. Sinuses: Minimal mucosal thickening of the ethmoid sinuses. Remainder of the visualized paranasal sin uses appear clear. IMPRESSION: 1. Possible, subtle left cerebellopontine angle mass versus volume averaging of adjacent cerebellum. Recommend contrast enhanced CT or MRI of the brain to further characterize. 2. Mild ethmoid sinusitis. No significant discrepancy with initial interpretation by overnight radiologist. Reviewed by: Edward Bacon MD on 09/09/2019 8:22 AM PDT Approved by: Edward Bacon MD on 09/09/2019 8:22 AM PDT Station ID: [id number]
--- NOTE | 2019-09-09 08:31 | CT Report ---
PROCEDURE: HEAD W/WO INDICATIONS: possible mass on noncontrast CT TECHNIQUE: 4.5 mm thick angled axial sections acquired from the foramen magnum to the vertex before and after th e administration of intravenous contrast. For radiation dose reduction, the following was used: aut omated exposure control, adjustment of mA and/or kV according to patient size. CONTRAST: IV CONTRAST: Optiray 320 ml: 80 PO CONTRAST: *NO PO CONTRAST COMPARISON: Head CT from earlier same day and 04/04/2018. FINDINGS: Image quality: Excellent. CSF Spaces: Basal cisterns are patent. No extra-axial fluid collections. Ventricles are normal in size and shape. Brain: No midline shift. No intracranial bleeds or masses. The previously described possible left c erebellopontine angle mass is not visualized. This appears to be volume averaging artifact of the lef t cerebellum. No abnormal intracranial enhancement. Zafar-white interface appears normal. Skull and face: Calvarium and visualized facial bones appear intact, without suspicious lesions. Sinuses: Visualized sinuses and mastoids are clear. IMPRESSION: Unremarkable contrast-enhanced CT of the head. No left cerebellopontine angle mass lesion. Findings d escribed on comparison CT from earlier same day is consistent with volume averaging artifact. There i s no mass or mass effect. No significant discrepancy with initial interpretation by overnight radiologist. Reviewed by: Edward Bacon MD on 09/09/2019 8:29 AM PDT Approved by: Edward Bacon MD on 09/09/2019 8:29 AM PDT Station ID: [id number]
== END 2019-09-09 02:04 | disposition home or self-care (01) ==
LOC: ED 21:06
DX: R42 Dizziness and giddiness (principal); H53.149 Visual discomfort, unspecified
CPT/HCPCS: 36415; 70450; 70470; 80053; 83690; 85025; 99284; Q9967

== ENCOUNTER 2019-12-18 17:51 | Outpatient (CLI) | payer OTHER | END 2019-12-18 17:52 | disposition critical access hospital (66) | LOC: EMS 17:51 | PROVIDERS: ATTEND Surgery | DX: M54.2 Cervicalgia (principal); R07.9 Chest pain, unspecified; R20.0 Anesthesia of skin; R42 Dizziness and giddiness; H53.8 Other visual disturbances | CPT/HCPCS: A0425; A0429 ==

== ENCOUNTER 2019-12-18 18:05 | Emergency (ER) | payer OTHER ==
--- NOTE | 2019-12-18 18:50 | ED Physician Documentation ---
History of Present Illness - Stated complaint Stated Complaint: BACK PX - Chief complaint Chief Complaint: Cardiac - Additonal information Additional information: 34-year-old male presents to the emergency department for evaluation of acute o nset left-sided neck pain that radiated into his chest. This occurred approximately 520 this evening. 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 He reports that the pain initially was dull but began to become sharp and he had associated pleuritic dyspnea. Patient reports that the pain lasted about 30 to 40 minutes before subsiding. He did have associated diaphoresis. No syncope nausea vomiting or abdominal pain. He has no history of similar. Pt reports that he has no chest pain at this time and feels back to "baseline" No personal history of blood clots or cancer. No recent travel, unilateral leg swelling or calf pain tenderness. No family history of blood clots deep vein thrombosis PE Past medical history: HSV, anxiety, depression as well as an adjustment disorder. Meds: Valacyclovir. Social no tobacco. Rare EtOH. Review of Systems Constitutional: denies: Fever, Chills Eyes: reports: Reviewed and negative Ears: reports: Reviewed and negative Nose: reports: Reviewed and negative Throat: reports: Reviewed and negative Cardiac: reports: Chest pain / pressure. denies: Palpitations, Pedal edema, Calf pain Respiratory: reports: Dyspnea. denies: Cough, Hemoptysis, Wheezing GI: reports: Abdominal Pain. denies: Nausea, Vomiting : denies: Dysuria, Frequency Skin: denies: Rash Musculoskeletal: denies: Neck pain, Back pain, Extremity pain Neurologic: denies: Generalized weakness, Focal weakness, Numbness, Difficulty speaking, Syncope, Headache, Head injury, LOC Psychiatric: reports: Depressed PD PAST MEDICAL HISTORY - Past Medical History Cardiovascular: Other Respiratory: None Neuro: None Endocrine/Autoimmune: None GI: Other : None HEENT: None Psych: Depression Musculoskeletal: Other Derm: Other - Past Surgical History Past Surgical History: Yes General: EGD, Other HEENT: Myringotomy (tubes) - Present Medications Home Medications: Ambulatory Orders Medication Instructions Recorded Confirmed No Known Home Medications 09/08/19 09/08/19 - Allergies Allergies/Adverse Reactions: Allergies Allergy/AdvReac Type Severity Reaction Status Date / Time No Known Drug Allergies Allergy Verified 12/18/19 18:16 - Social History Does the pt smoke?: No Smoking Status: Never smoker Does the pt drink ETOH?: Yes Does the pt have substance abuse?: No - Immunizations Immunizations are current?: Yes - POLST Patient has POLST: No PD ED PE NORMAL - General General: Alert and oriented X 3, No acute distress - HEENT HEENT: Atraumatic, EOMI - Neck Neck: Supple, no meningeal sign, No adenopathy, No JVD - Cardiac Cardiac: RRR, No murmur, No gallop, No rub - Respiratory Respiratory: No respiratory distress, Clear bilaterally - Abdomen Abdomen: Normal bowel sounds, Soft, Non tender - Male Male : Deferred - Back Back: No CVA TTP, No spinal TTP - Derm Derm: Normal color, Warm and dry, No rash - Extremities Extremities: No deformity - Neuro Neuro: Alert and oriented X 3, 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 Eye Opening: Spontaneous Motor: Obeys Commands - Psych Psych: Normal mood PD ED PE EXPANDED - General General: Alert, No acute distress, Well developed/nourished Results - Vitals Vitals: Vital Signs - 24 hr 12/18/19 12/18/19 18:16 18:20 Temperature 36.5 C 36.5 C Heart Rate 75 75 Respiratory 18 18 Rate Blood Pressure 129/97 H 129/97 H O2 Saturation 97 97 Oxygen O2 Source Room air - EKG (time done) 1904 Rate: Rate (enter#) (79) Rhythm: NSR [place]: Normal Intervals: Normal [place] QRS: Normal Ischemia: Q waves (inferior leads; unchanged) Compare to prior EKG: Unchanged from prior EKG Computer interpretation: Agree with computer - Labs Labs: Laboratory Tests 12/18/19 12/18/19 12/18/19 18:56 18:56 18:56 WBC 9.1 RBC 5.06 Hgb 15.0 Hct 43.5 MCV 86.0 MCH 29.6 MCHC 34.5 RDW 12.3 Plt Count 337 MPV 9.4 Neut # (Auto) 5.4 Lymph # (Auto) 2.8 [place] # (Auto) 0.8 Eos # (Auto) 0.1 Baso # (Auto) 0.0 Absolute Nucleated RBC 0.00 Nucleated RBC % 0.0 D-Dimer 203.5 Sodium 139 Potassium 3.8 Chloride 103 Carbon Dioxide 24 Anion Gap 12.0 BUN 15 Creatinine 0.9 Estimated GFR (MDRD) 97 Glucose 96 Calcium 9.5 Total Bilirubin 1.8 H AST 15 ALT 19 Alkaline Phosphatase 49 Troponin I High Sens Total Protein 8.4 H Albumin 4.9 Globulin 3.5 Albumin/Globulin Ratio 1.4 Lipase 33 12/18/19 18:56 WBC RBC Hgb Hct MCV MCH MCHC RDW Plt Count MPV Neut # (Auto) Lymph # (Auto) [place] # (Auto) Eos # (Auto) Baso # (Auto) Absolute Nucleated RBC Nucleated RBC % D-Dimer Sodium Potassium Chloride Carbon Dioxide Anion Gap BUN Creatinine Estimated GFR (MDRD) Glucose Calcium Total Bilirubin AST ALT Alkaline Phosphatase Troponin I High Sens 2.4 Total Protein Albumin Globulin Albumin/Globulin Ratio Lipase - Rads (name of study) cxr Radiology: Final report received PD MEDICAL DECISION MAKING - ED course Complexity details: reviewed results, re-evaluated patient, considered differential, d/w patient ED course: 34-year-old male presents to the emergency department for evaluation of left neck and chest pain that lasted about 15 minutes this evening. Upon presentation to the emergency department he had no further chest pain. His EKG today is unchanged from the 2019 EKG however it does show Q waves in the inferior leads. His high-sensitivity troponin is negative. Pulmonary embolism was considered in the differential and by PERC and Wells criteria it would be the rest of his labs and electrolytes were essentially unremarkable. Extremely unlikely for him to have a PE. In addition to that his D-dimer was negative. A chest x-ray did not show any acute focal opacities, cardiomegaly, CHF pleural effusion. This case was discussed with the patient. I feel that he is stable for discharge home. I have advised him to have close follow-up with [facility]. He may benefit from an outpatient echocardiogram or stress echo. The patient's heart score is 0. Emergent return precautions were discussed Departure - Departure Disposition: 01 Home, Self Care Clinical Impression: Abnormal electrocardiogram Chest pain Qualifiers: Chest pain type: unspecified Qualified Code(s): R07.9 - Chest pain, unspecified Condition: Stable Record reviewed to determine appropriate education?: Yes Comments: Deo your labs today are unremarkable. Your troponin and D-dimer are normal. Your chest x-ray does not show any worrisome findings. However your EKG is abnormal. It does show Q waves in your inferior leads. This is very similar to an EKG that you had in 2019. It is important that you follow-up with [facility]. You should be referred for an outpatient stress test or echocardiogram. If you develop worsening chest pain, have any fainting episodes or severely short of breath please return to the ER for a second evaluation
[2019-12-18 19:12] LABS: BASOPHILS % (AUTO) 0.4 %; EOSINOPHILS # (AUTO) 0.1 10^3/uL (0.0-0.7); LYMPHOCYTES # (AUTO) 2.8 10^3/uL (1.5-3.5); LYMPHOCYTES % (AUTO) 30.6 %; MEAN CORPUSCULAR HEMOGLOBIN 29.6 pg (27.0-31.0); MEAN CORPUSCULAR HGB CONC 34.5 g/dL (32.0-36.0); MEAN PLATELET VOLUME 9.4 fL (7.4-11.4); MONOCYTES # (AUTO) 0.8 10^3/uL (0.0-1.0); MONOCYTES % (AUTO) 8.4 %; NEUTROPHILS # (AUTO) 5.4 10^3/uL (1.5-6.6); NEUTROPHILS % (AUTO) 59.4 %; PLT - PLATELET COUNT 337 10^3/uL (130-450); RED BLOOD COUNT 5.06 10^6/uL (4.70-6.10); RED CELL DISTRIBUTION WIDTH 12.3 % (12.0-15.0); WHITE BLOOD COUNT 9.1 x10^3/uL (4.8-10.8)
[2019-12-18 19:23] LABS: ALBUMIN 4.9 g/dL (3.2-5.5); ALBUMIN/GLOBULIN RATIO 1.4 (1.0-2.2); BILIRUBIN,TOTAL 1.8 mg/dL (0.2-1.0); CALCIUM 9.5 mg/dL (8.5-10.3); CREATININE 0.9 mg/dL (0.6-1.2); TOTAL PROTEIN 8.4 g/dL (6.7-8.2)
--- NOTE | 2019-12-18 19:24 | XRAY Report ---
PROCEDURE: Chest 1 View X-Ray INDICATIONS: Chest Pain TECHNIQUE: One view of the chest was acquired. COMPARISON: 09/06/2018 FINDINGS: Surgical changes and devices: None. Lungs and pleura: No pleural effusions or pneumothorax. Lungs are clear. Mediastinum: Mediastinal contours appear normal. Heart size is normal. Bones and chest wall: No suspicious bony lesions. Overlying soft tissues appear unremarkable. IMPRESSION: No acute cardiopulmonary disease process. Reviewed by: Adamaris Bucio MD, PhD on 12/18/2019 7:22 PM [facility] Approved by: Adamaris Bucio MD, PhD on 12/18/2019 7:22 PM PST Station ID: [id number]
[2019-12-18 20:16] VITALS: BP 129/84
== END 2019-12-18 20:32 | disposition home or self-care (01) ==
LOC: EDUNIT# → ED 18:05
DX: R07.9 Chest pain, unspecified (principal); R94.31 Abnormal electrocardiogram [ECG] [EKG]
CPT/HCPCS: 36415; 71045; 80053; 83690; 84484; 85025; 85379; 93005; 99284

== ENCOUNTER 2020-03-07 19:44 | Emergency (ER) | payer OTHER ==
--- NOTE | 2020-03-07 20:15 | XRAY Report ---
PROCEDURE: Chest 1 View X-Ray INDICATIONS: Chest pain TECHNIQUE: One view of the chest was acquired. COMPARISON: 12/18/2019 FINDINGS: Surgical changes and devices: None. Lungs and pleura: No pleural effusions or pneumothorax. Lungs are clear. Mediastinum: Mediastinal contours appear normal. Heart size is normal. Bones and chest wall: No suspicious bony lesions. Overlying soft tissues appear unremarkable. IMPRESSION: No acute process. Reviewed by: Faustina Bryan MD on 03/07/2020 8:14 PM PST Approved by: Faustina Bryan MD on 03/07/2020 8:14 PM [facility] Station ID: [id number]
--- NOTE | 2020-03-07 20:16 | ED Physician Documentation ---
History of Present Illness - Stated complaint Stated Complaint: CP/TIGHTNESS/LT HAND NUMBNESS - Chief complaint Chief Complaint: Cardiac - History obtained from History obtained from: Patient - History of Present Illness Timing: Prior to arrival - Additonal information Additional information: 34-year-old male presents emergency department for evaluation of chest pain that radiates across his chest with some radiation to his head. He reports that it began when he was driving home from dropping his daughter off at her mother's. He did have a similar presentation for chest pain a few months ago and was seen by me. At that time the work-up was unremarkable. He was referred to his primary care doctor for follow-up in order to obtain an echo and stress test. He reports that he has the appointment for those procedures next month. He has no history of high blood pressure or tobacco use. No personal history of coronary artery disease. He does have a family history of early cardiac in his grandfather at the age of 55. Pt declines analgesia at this time Patient has no personal history of blood clots or cancer. No recent travel, unilateral leg swelling, calf pain tenderness. No family history of blood clots deep vein thrombosis or pulmonary embolism. PMH: HSV, anxiety, depression as well as an adjustment disorder. Review of Systems Constitutional: denies: Fever, Chills Eyes: reports: Reviewed and negative Ears: reports: Reviewed and negative Nose: reports: Reviewed and negative Throat: reports: Reviewed and negative Cardiac: reports: Chest pain / pressure. denies: Palpitations, Pedal edema, Calf pain Respiratory: denies: Dyspnea, Cough, Hemoptysis, Wheezing GI: reports: Nausea. denies: Abdominal Pain, Abdominal Swelling, Vomiting : denies: Dysuria, Frequency, Hesitancy Skin: reports: Rash. denies: Lesions Musculoskeletal: denies: Neck pain, Back pain Neurologic: reports: Headache Psychiatric: reports: Reviewed and negative PD PAST MEDICAL HISTORY - Past Medical History Cardiovascular: Other Respiratory: None Neuro: None Endocrine/Autoimmune: None GI: Other : None HEENT: None Psych: Depression Musculoskeletal: Other Derm: Other - Past Surgical History Past Surgical History: Yes General: EGD, Other HEENT: Myringotomy (tubes) - Present Medications Home Medications: Ambulatory Orders Medication Instructions Recorded Confirmed Fluoxetine HCl [Prozac] 20 mg PO DAILY 03/07/20 03/07/20 Propranolol [Inderal] 10 mg PO DAILY 03/07/20 03/07/20 - Allergies Allergies/Adverse Reactions: Allergies Allergy/AdvReac Type Severity Reaction Status Date / Time No Known Drug Allergies Allergy Verified 12/18/19 18:16 - Social History Does the pt smoke?: No Smoking Status: Never smoker Does the pt drink ETOH?: Yes Does the pt have substance abuse?: No - Immunizations Immunizations are current?: Yes - POLST Patient has POLST: No PD ED PE NORMAL - General General: Alert and oriented X 3, No acute distress, Well developed/nourished - HEENT HEENT: PERRL, EOMI, Ears normal, Moist mucous membranes, Pharynx benign - Neck Neck: Supple, no meningeal sign, No adenopathy - Cardiac Cardiac: RRR, No murmur, No gallop, No rub, Strong equal pulses - Respiratory Respiratory: No respiratory distress, Clear bilaterally - Abdomen Abdomen: Normal bowel sounds, Soft, Non tender, Non distended - Back Back: No CVA TTP - Derm Derm: Normal color, Warm and dry, No rash - Extremities Extremities: No deformity, No tenderness to palpate, Normal ROM s pain, No calf tenderness / cord - Neuro Neuro: Alert and oriented X 3, 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, No motor deficit, Normal speech Eye Opening: Spontaneous Motor: Obeys Commands Verbal: Oriented GCS Score: 15 - Psych Psych: Normal mood Results - Vitals Vitals: Vital Signs - 24 hr 03/07/20 03/07/20 19:45 21:01 Temperature 36.3 C L 36.8 C Heart Rate 67 60 Respiratory 18 17 Rate Blood Pressure 132/75 H 125/76 O2 Saturation 96 97 Oxygen O2 Source Room air - EKG (time done) 1946 Rate: Rate (enter#) (70) Rhythm: NSR [place]: Normal Intervals: Normal [place] Ischemia: ST elevation c/w repol Compare to prior EKG: Unchanged from prior EKG Computer interpretation: Agree with computer - Labs Labs: Laboratory Tests 03/07/20 03/07/20 03/07/20 20:12 20:12 20:12 WBC 8.3 RBC 5.04 Hgb 14.8 Hct 43.8 MCV 86.9 MCH 29.4 MCHC 33.8 RDW 12.2 Plt Count 328 MPV 9.3 Neut # (Auto) 4.1 Lymph # (Auto) 3.2 [place] # (Auto) 0.6 Eos # (Auto) 0.3 Baso # (Auto) 0.0 Absolute Nucleated RBC 0.00 Nucleated RBC % 0.0 Sodium 138 Potassium 3.7 Chloride 103 Carbon Dioxide 25 Anion Gap 10.0 BUN 20 Creatinine 0.9 Estimated GFR (MDRD) 97 Glucose 106 H Calcium 9.4 Total Bilirubin 0.7 AST 17 ALT 25 Alkaline Phosphatase 51 Troponin I High Sens 2.4 Total Protein 7.5 Albumin 4.5 Globulin 3.0 Albumin/Globulin Ratio 1.5 Lipase 40 PD MEDICAL DECISION MAKING - ED course Complexity details: reviewed results, re-evaluated patient, considered differential, d/w patient ED course: 34-year-old male presents the emergency department for evaluation of acute substernal chest pain that radiated across his chest. This occurred this evening when he was driving back from dropping his daughter off. He had a visit for similar in November of this year. At that time the work-up was negative. He is scheduled to see a doper next month in follow-up to obtain an echo and stress test. Here in the emergency department chest x-ray without any acute focal abnormality. His vital signs are unremarkable no hypertension or fever. Screening labs are also entirely within normal limits. His high-sensitivity troponin is negative. His heart score is 1 making him low risk for Mace. By PERC criteria there is no suspicion for a PE. I have encouraged this gentleman to continue to follow-up with primary doctor and cardiology as already scheduled. Emergent return precautions discussed Departure - Departure Disposition: Home, Self Care Clinical Impression: Chest pain Qualifiers: Chest pain type: unspecified Qualified Code(s): R07.9 - Chest pain, unspecified Condition: Stable Record reviewed to determine appropriate education?: Yes Instructions: ED Chest Pain Atypical Unkn Cause Comments: Deo you were seen today in the emergency department for chest pain. Your EKG and chest x-ray are normal. Your labs are entirely unremarkable and normal. The cause of your chest pain is not clear though the likelihood that this is due to your heart or a blood clot in your lung is very low. Please continue to follow-up with your primary care provider for evaluation of your chest pain and the doper for which you are scheduled next month. Return to the emergency department if you have severe chest pain causing difficulty breathing, leg swelling or any fainting episodes Discharge Date/Time: 03/07/20 21:03
[2020-03-07 20:18] LABS: BASOPHILS % (AUTO) 0.2 %; EOSINOPHILS # (AUTO) 0.3 10^3/uL (0.0-0.7); EOSINOPHILS % (AUTO) 3.6 %; HGB - HEMOGLOBIN 14.8 g/dL (14.0-18.0); LYMPHOCYTES # (AUTO) 3.2 10^3/uL (1.5-3.5); LYMPHOCYTES % (AUTO) 38.8 %; MEAN CORPUSCULAR HEMOGLOBIN 29.4 pg (27.0-31.0); MEAN CORPUSCULAR HGB CONC 33.8 g/dL (32.0-36.0); MEAN CORPUSCULAR VOLUME 86.9 fL (80.0-94.0); MEAN PLATELET VOLUME 9.3 fL (7.4-11.4); MONOCYTES # (AUTO) 0.6 10^3/uL (0.0-1.0); MONOCYTES % (AUTO) 7.7 %; NEUTROPHILS # (AUTO) 4.1 10^3/uL (1.5-6.6); NEUTROPHILS % (AUTO) 49.5 %; PLT - PLATELET COUNT 328 10^3/uL (130-450); RED BLOOD COUNT 5.04 10^6/uL (4.70-6.10); RED CELL DISTRIBUTION WIDTH 12.2 % (12.0-15.0); WHITE BLOOD COUNT 8.3 x10^3/uL (4.8-10.8)
[2020-03-07 20:44] LABS: ALBUMIN 4.5 g/dL (3.2-5.5); ALBUMIN/GLOBULIN RATIO 1.5 (1.0-2.2); BILIRUBIN,TOTAL 0.7 mg/dL (0.2-1.0); CALCIUM 9.4 mg/dL (8.5-10.3); CREATININE 0.9 mg/dL (0.6-1.2); TOTAL PROTEIN 7.5 g/dL (6.7-8.2)
[2020-03-07 21:03] VITALS: BP 125/76
== END 2020-03-07 21:03 | disposition home or self-care (01) ==
LOC: ED 19:44
DX: R07.89 Other chest pain (principal); Z82.41 Family history of sudden cardiac death; R51.9 Headache, unspecified; R11.0 Nausea
CPT/HCPCS: 36415; 80053; 83690; 84484; 85025; 93005; 99284

== ENCOUNTER 2020-06-22 13:02 | Emergency (ER) | payer OTHER ==
--- OUTSIDE RECORDS SUMMARY | 2020-06-22 13:06 | EXTERNAL MEDICAL SUMMARY RPT | Continuity of Care Document ---
:1985 Demographics Phone Unavailable Preferred Language Cook Islander Marital Status Unknown Presybeterian Affiliation Unknown Race Unknown Ethnic Group Unknown Author Organization [facility] Address [address] [phone] Phone Care Team Providers Name Role Phone Greg Miller Unavailable Unavailable Miscellaneous, Doctor Unavailable Unavailable Problems date description facility [id number] Unspecified right bundle-branch block [facility] [id number] Chest pain, unspecified [facility] [id number] Encounter for preprocedural laboratory examination [facility] [id number] Contact with and (suspected) exposure t o COVID-19 [facility] Procedures date description facility [id number] General Physician [facility]
--- OUTSIDE RECORDS SUMMARY | 2020-06-22 13:29 | EXTERNAL MEDICAL SUMMARY RPT | Continuity of Care Document ---
:1985 Demographics Phone Unavailable Preferred Language Mexican Marital Status Unknown Anabaptism Affiliation Unknown Race Unknown Ethnic Group Unknown Author Organization [facility] Address [address] [phone] Phone Care Team Providers Name Role Phone Greg Miller Unavailable Unavailable Miscellaneous, Doctor Unavailable Unavailable Problems date description facility [id number] Unspecified right bundle-branch block [facility] [id number] Chest pain, unspecified [facility] [id number] Encounter for preprocedural laboratory examination [facility] [id number] Contact with and (suspected) exposure t o COVID-19 [facility] Procedures date description facility [id number] General Physician [facility]
[2020-06-22 13:42] LABS: BASOPHILS % (AUTO) 0.4 %; EOSINOPHILS # (AUTO) 0.3 10^3/uL (0.0-0.7); EOSINOPHILS % (AUTO) 3.4 %; HCT - HEMATOCRIT 44.5 % (42.0-52.0); LYMPHOCYTES # (AUTO) 2.3 10^3/uL (1.5-3.5); LYMPHOCYTES % (AUTO) 30.8 %; MEAN CORPUSCULAR HEMOGLOBIN 29.2 pg (27.0-31.0); MEAN CORPUSCULAR HGB CONC 33.7 g/dL (32.0-36.0); MEAN CORPUSCULAR VOLUME 86.6 fL (80.0-94.0); MEAN PLATELET VOLUME 9.2 fL (7.4-11.4); MONOCYTES # (AUTO) 0.6 10^3/uL (0.0-1.0); MONOCYTES % (AUTO) 7.9 %; NEUTROPHILS # (AUTO) 4.3 10^3/uL (1.5-6.6); NEUTROPHILS % (AUTO) 57.1 %; PLT - PLATELET COUNT 361 10^3/uL (130-450); RED BLOOD COUNT 5.14 10^6/uL (4.70-6.10); RED CELL DISTRIBUTION WIDTH 12.7 % (12.0-15.0); WHITE BLOOD COUNT 7.4 x10^3/uL (4.8-10.8)
[2020-06-22 13:53] VITALS: BP 127/90
[2020-06-22 13:57] LABS: ALBUMIN 4.9 g/dL (3.2-5.5); ALBUMIN/GLOBULIN RATIO 1.4 (1.0-2.2); BILIRUBIN,TOTAL 1.3 mg/dL (0.2-1.0); CALCIUM 9.9 mg/dL (8.5-10.3); CREATININE 0.9 mg/dL (0.6-1.2); POTASSIUM 4.5 mmol/L (3.5-5.0); TOTAL PROTEIN 8.3 g/dL (6.7-8.2)
[2020-06-22] MEDS ORDERED: LORazepam 2 MG/ML VIAL IM STA (14:00)
--- NOTE | 2020-06-22 14:02 | ED Physician Documentation ---
History of Present Illness - Stated complaint Stated Complaint: HEART PALPITATIONS/SHAKING - Chief complaint Chief Complaint: General - History obtained from History obtained from: Patient - Additonal information Additional information: 34-year-old gentleman with PTSD presents with apparent exacerbation of same. His neighbors are replacing their siding and that is similar to a prior trigger for PTSD, specifically that his would come in in the morning and wake him up by banging on the door and it sounded like banging on the door. He is feeling anxious and at times is nearly catatonic. Denies SI or HI. Review of Systems Ten Systems: 10 systems reviewed and negative Constitutional: denies: Fever, Chills Cardiac: reports: Palpitations Respiratory: reports: Dyspnea. denies: Cough GI: denies: Abdominal Pain PD PAST MEDICAL HISTORY - Past Medical History Cardiovascular: Other Respiratory: None Neuro: None Endocrine/Autoimmune: None GI: Other : None HEENT: None Psych: Depression Musculoskeletal: Other Derm: Other - Past Surgical History Past Surgical History: Yes General: EGD, Other HEENT: Myringotomy (tubes) - Present Medications Home Medications: Ambulatory Orders Medication Instructions Recorded Confirmed Fluoxetine HCl [Prozac] 60 mg PO DAILY 03/07/20 06/22/20 Propranolol [Inderal] 10 mg PO DAILY 03/07/20 06/22/20 LORazepam [Ativan] 1 mg PO TID PRN #15 tablet 06/22/20 Quetiapine Fumarate [Seroquel] 50 mg PO HS 06/22/20 06/22/20 - Allergies Allergies/Adverse Reactions: Allergies Allergy/AdvReac Type Severity Reaction Status Date / Time No Known Drug Allergies Allergy Verified 06/22/20 13:08 - Social History Does the pt smoke?: No Smoking Status: Never smoker Does the pt drink ETOH?: Yes Does the pt have substance abuse?: No - Immunizations Immunizations are current?: Yes - POLST Patient has POLST: No PD ED PE NORMAL - Vitals Vital signs reviewed: Yes - General General: Alert and oriented X 3, No acute distress - HEENT HEENT: PERRL, EOMI - Neck Neck: Supple, no meningeal sign, No bony TTP - Cardiac Cardiac: RRR, No murmur - Respiratory Respiratory: No respiratory distress, Clear bilaterally - Abdomen Abdomen: Non tender - Back Back: No CVA TTP - Derm Derm: Normal color, Warm and dry - Extremities Extremities: No edema, No calf tenderness / cord - Neuro Neuro: Alert and oriented X 3, Normal speech Results - Vitals Vitals: Vital Signs - 24 hr 06/22/20 06/22/20 13:09 13:53 Temperature 36.4 C L Heart Rate 56 L 55 L Respiratory 20 12 Rate Blood Pressure 125/86 H 127/90 H O2 Saturation 96 100 Oxygen O2 Source Room air - EKG (time done) 1315 Rate: Rate (enter#) (58) Rhythm: NSR [place]: Normal Intervals: Normal [place] Ischemia: ST elevation c/w repol Computer interpretation: Agree with computer - Labs Labs: Laboratory Tests 06/22/20 06/22/20 06/22/20 13:37 13:37 13:37 WBC 7.4 RBC 5.14 Hgb 15.0 Hct 44.5 MCV 86.6 MCH 29.2 MCHC 33.7 RDW 12.7 Plt Count 361 MPV 9.2 Neut # (Auto) 4.3 Lymph # (Auto) 2.3 Camp # (Auto) 0.6 Eos # (Auto) 0.3 Baso # (Auto) 0.0 Absolute Nucleated RBC 0.00 Nucleated RBC % 0.0 Sodium 138 Potassium 4.5 Chloride 101 Carbon Dioxide 28 Anion Gap 9.0 BUN 9 Creatinine 0.9 Estimated GFR (MDRD) 97 Glucose 100 Calcium 9.9 Total Bilirubin 1.3 H AST 19 ALT 25 Alkaline Phosphatase 55 Troponin I High Sens 2.4 Total Protein 8.3 H Albumin 4.9 Globulin 3.4 Albumin/Globulin Ratio 1.4 Lipase 30 PD MEDICAL DECISION MAKING - ED course ED course: 34-year-old gentleman with symptoms referable to an exacerbation of PTSD. He was feeling better after milligram of Ativan IM. No evidence of cardiac dysfunction or other emergency medical condition. Departure - Departure Disposition: 01 Home, Self Care Clinical Impression: Anxiety Condition: Good Record reviewed to determine appropriate education?: Yes Instructions: ED Stress React Prescriptions: LORazepam [Ativan] 1 mg PO TID PRN #15 tablet PRN Reason: Anxiety Comments: Followup with your counsellor(s). Return if worse, for new symptoms. Do not drink or drive while taking lrazepam, d not drive today. Forms: Activity restrictions Discharge Date/Time: 06/22/20 15:16
--- NOTE | 2020-06-22 14:41 | XRAY Report ---
PROCEDURE: Chest 1 View X-Ray INDICATIONS: Chest Pain TECHNIQUE: One view of the chest was acquired. COMPARISON: Chest x-ray 03/07/2020 FINDINGS: Surgical changes and devices: None. Lungs and pleura: No pleural effusions or pneumothorax. Lungs are clear. Mediastinum: Mediastinal contours appear normal. Heart size is enlarged. Bones and chest wall: No suspicious bony lesions. Overlying soft tissues appear unremarkable. IMPRESSION: No acute pulmonary process. Reviewed by: Farzaneh Enriquez MD on 06/22/2020 2:40 PM PDT Approved by: Farzaneh Enriquez MD on 06/22/2020 2:40 PM PDT Station ID: [id number]
== END 2020-06-22 15:16 | disposition home or self-care (01) ==
LOC: ED 13:02
DX: F41.9 Anxiety disorder, unspecified (principal)
CPT/HCPCS: 36415; 71045; 80053; 83690; 84484; 85025; 93005; 96372; 99283; 99284; J2060

== ENCOUNTER 2020-07-21 19:21 | Emergency (ER) | payer OTHER ==
[2020-07-21] MEDS ORDERED: diphenhydrAMINE 25 MG CAPSULE PO STA (21:21)
[2020-07-21] MEDS ORDERED: OXYMETAZOLINE HCL 100 SPRAYS BOTTLE NAS STA (21:22)
[2020-07-21] MEDS ORDERED: AMOX/CLAV 875 MG/125 MG TABLET PO STA (21:26)
--- NOTE | 2020-07-21 21:29 | ED Physician Documentation ---
History of Present Illness - Stated complaint Stated Complaint: SINUS PX - Chief complaint Chief Complaint: Heent - History obtained from History obtained from: Patient - Additonal information Additional information: 34-year-old man presents with left-sided sinus pressure and URI symptoms over the past week and a half, progressively worsening, with severe drainage today. Patient has been using Josefina pot without relief. Denies fever, headache, vision changes. Review of Systems Constitutional: reports: Fatigue Ears: denies: Ear pain, Drainage/discharge Nose: reports: Rhinorrhea / runny nose, Congestion, Sinus pressure / pain Throat: reports: Sore throat PD PAST MEDICAL HISTORY - Past Medical History Cardiovascular: Other Respiratory: None Neuro: None Endocrine/Autoimmune: None GI: Other : None HEENT: None Psych: Depression Musculoskeletal: Other Derm: Other - Past Surgical History Past Surgical History: Yes General: EGD, Other HEENT: Myringotomy (tubes) - Present Medications Home Medications: Ambulatory Orders Medication Instructions Recorded Confirmed Fluoxetine HCl [Prozac] 60 mg PO DAILY 03/07/20 06/22/20 Propranolol [Inderal] 10 mg PO DAILY 03/07/20 06/22/20 LORazepam [Ativan] 1 mg PO TID PRN #15 tablet 06/22/20 Quetiapine Fumarate [Seroquel] 50 mg PO HS 06/22/20 06/22/20 Amox/Clav 875/125 [Augmentin 1 tablet PO Q12H 7 Days #14 tablet 07/21/20 875/125 Tab] - Allergies Allergies/Adverse Reactions: Allergies Allergy/AdvReac Type Severity Reaction Status Date / Time No Known Drug Allergies Allergy Verified 07/21/20 19:34 - Social History Does the pt smoke?: No Smoking Status: Never smoker Does the pt drink ETOH?: Yes Does the pt have substance abuse?: No - Immunizations Immunizations are current?: Yes - POLST Patient has POLST: No PD ED PE NORMAL - Vitals Vital signs reviewed: Yes - General General: Alert and oriented X 3, No acute distress, Well developed/nourished - HEENT HEENT: Atraumatic, PERRL, EOMI, Ears normal, Moist mucous membranes, Other (Bilateral naris with inflammation to nasal turbinates. Purulent drainage from bilateral naris with left worse than the right. Maxillary sinus tender to palpation on the left) Results - Vitals Vitals: Oxygen O2 Source Room air PD MEDICAL DECISION MAKING - ED course ED course: 34-year-old man presents with more than 10 days of URI symptoms concerning for acute bacterial sinusitis. Will treat with antibiotics. Return precautions given. Patient will follow up with his primary doctor. Departure - Departure Disposition: 01 Home, Self Care Clinical Impression: Acute rhinosinusitis Condition: Good Instructions: ED Sinusitis Abx Tx Prescriptions: Amox/Clav 875/125 [Augmentin 875/125 Tab] 1 tablet PO Q12H 7 Days #14 tablet Comments: You were seen in the emergency department for sinusitis, an infection of the nose and sinuses. Please take your antibiotics as prescribed and complete the course. Follow-up with your primary doctor. Return to the emergency department you have any new or worsening symptoms or other concerns. For symptomatic care, you can use the nasal spray we gave you twice a day but no more often than that. Make sure that you get a coolmist humidifier by the bedside at nighttime to help loosen up secretions. Drink lots of water and get lots of rest. Hope you feel better! Discharge Date/Time: 07/21/20 21:40
[2020-07-21 21:38] VITALS: BP 127/81
== END 2020-07-21 21:40 | disposition home or self-care (01) ==
LOC: ED 19:21
DX: J01.90 Acute sinusitis, unspecified (principal)
CPT/HCPCS: 99282; 99283; A9270

== ENCOUNTER 2021-09-02 02:03 | Emergency (ER) | payer OTHER ==
[2021-09-02 02:13] VITALS: BP 145/91
[2021-09-02] MEDS ORDERED: KETOROLAC 30 MG/ML VIAL IM STA (02:18)
[2021-09-02 02:54] LABS: RAPID STREP SCREEN Negative (Negative)
[2021-09-02 03:34] LABS: CORONAVIRUS 229E-RESP PCR NOT DETECTED; CORONAVIRUS HKU1-RESP PCR NOT DETECTED; CORONAVIRUS NL63-RESP PCR NOT DETECTED; CORONAVIRUS OC43-RESP PCR NOT DETECTED
[2021-09-02 03:35] LABS: HUMAN METAPNEUMOVIRUS NOT DETECTED; INFLUENZA A- RESP PCR PANEL NOT DETECTED; INFLUENZA B - RESP PCR PANEL NOT DETECTED; PARAINFLUENZA VIRUS 1 NOT DETECTED; PARAINFLUENZA VIRUS 2 NOT DETECTED; RHINOVIRUS/ENTEROVIRUS NOT DETECTED; SARS-CoV-2 -RESP PCR PANEL DETECTED
[2021-09-02 03:36] LABS: B. PARAPERTUSSIS- RESP PCR PAN NOT DETECTED; B. PERTUSSIS- RESP PCR PANEL NOT DETECTED; C. PNEUMONIAE- RESP PCR PANEL NOT DETECTED; M. PNEUMONIAE- RESP PCR PANEL NOT DETECTED; PARAINFLUENZA VIRUS 3 NOT DETECTED; PARAINFLUENZA VIRUS 4 NOT DETECTED; RSV- RESP PCR PANEL NOT DETECTED
--- NOTE | 2021-09-02 03:40 | ED Physician Documentation ---
History of Present Illness - Stated complaint Stated Complaint: NOT FEELING WELL - Chief complaint Chief Complaint: General - History obtained from History obtained from: Patient - History of Present Illness Timing: Prior to arrival - Additonal information Additional information: 36-year-old male with no significant past medical history presents for fever, chills, nonproductive cough, subjective shortness of breath. Patient states that he woke up just prior to arrival with the symptoms. His gave him 500 mg of Tylenol at 0200, and brought him to the ER for evaluation. recently got over strep throat. Patient denies other sick contacts. Review of Systems Ten Systems: 10 systems reviewed and negative Constitutional: reports: Fever, Chills Cardiac: denies: Chest pain / pressure, Palpitations Respiratory: reports: Dyspnea, Cough. denies: Wheezing PD PAST MEDICAL HISTORY - Past Medical History Past Medical History: No - Allergies Allergies/Adverse Reactions: Allergies Allergy/AdvReac Type Severity Reaction Status Date / Time No Known Drug Allergies Allergy Verified 09/02/21 02:13 PD ED PE NORMAL - Vitals Vital signs reviewed: Yes - General General: Alert and oriented X 3, No acute distress, Well developed/nourished - HEENT HEENT: Atraumatic, PERRL, EOMI - Neck Neck: Supple, no meningeal sign, No bony TTP, No adenopathy - Cardiac Cardiac: RRR, No murmur, Strong equal pulses - Respiratory Respiratory: No respiratory distress, Clear bilaterally - Abdomen Abdomen: Soft, Non tender, Non distended - Back Back: No CVA TTP, No spinal TTP - Derm Derm: Normal color, Warm and dry, No rash - Extremities Extremities: No deformity, No tenderness to palpate, Normal ROM s pain - Neuro Neuro: Alert and oriented X 3, 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 parapertussis DNA (PCR) NOT DETECTED Nasal Coronavir 229E PCR NOT DETECTED Nasal Coronavir HKU1 PCR NOT DETECTED Nasal Coronavir NL63 PCR NOT DETECTED Nasal Coronavir OC43 PCR NOT DETECTED Nasal Enterovir/Rhinovir PCR NOT DETECTED Nasal Influenza B PCR NOT DETECTED Nasal Influenza A PCR NOT DETECTED Nasal Parainfluen 1 PCR NOT DETECTED Nasal Parainfluen 2 PCR NOT DETECTED Nasal Parainfluen 3 PCR NOT DETECTED Nasal Parainfluen 4 PCR NOT DETECTED Nasal RSV (PCR) NOT DETECTED Nasal B.pertussis DNA PCR NOT DETECTED Nasal C.pneumoniae (PCR) NOT DETECTED Jeremy Human Metapneumo PCR NOT DETECTED Nasal M.pneumoniae (PCR) NOT DETECTED Nasal SARS-CoV-2 (PCR) DETECTED A Group A Strep Rapid Negative PD MEDICAL DECISION MAKING - ED course ED course: Well-appearing male with 1 to 2 hours of fever. Physical exam benign, patient reports shortness of breath however speaking in complete sentences without any dyspnea, oxygen saturations stable on room air. Patient found to be positive for COVID-19. Supportive measures counseled with patient and at bedside. Departure - Departure Disposition: 01 Home, Self Care Clinical Impression: COVID-19 Condition: Stable Instructions: ED Viral Syndrome, COVID-19 [facility] Department Statement, Flu and Cold: Nutrition, Prevention and Treatment Tips Comments: Take Tylenol and Motrin as needed for fever. Drink plenty fluids. Get plenty of rest. Quarantine per your job requirements. Discharge Date/Time: 09/02/21 03:46
== END 2021-09-02 03:46 | disposition home or self-care (01) ==
LOC: MERGE 02:03 → ED 02:03
DX: U07.1 COVID-19 (principal)
CPT/HCPCS: 87070; 87430; 87633; 96372; 99282; 99283

== ENCOUNTER 2021-12-13 20:04 | Emergency (ER) | payer OTHER ==
[2021-12-13 20:14] VITALS: BP 141/98
== END 2021-12-13 23:39 | disposition left against medical advice (07) ==
LOC: ED 20:04
DX: Z53.21 Procedure and treatment not carried out due to patient leaving prior to being seen by health care provider (principal)

== ENCOUNTER 2022-09-01 10:34 | Emergency (ER) | payer OTHER ==
--- NOTE | 2022-09-01 10:50 | ED Physician Documentation ---
PD HPI HEAD INJURY - Stated complaint Stated Complaint: HEAD INJ/NAUSEA - Chief complaint Chief Complaint: Trauma Hd/Nk - History obtained from History obtained from: Patient - History of Present Illness Mechanism of head injury: Blow Where head injury occurred: Work Timing - onset: How many hours ago (1), Today Location of injury: Right, Front Quality of pain: Throbbing Associated symptoms: Nausea / vomiting, Other (general headache though more to the right.). No: LOC, Neck pain Symptoms improve with: No: Rest Symptoms worsen with: Palpation, Light Similar symptoms before: Has not had sx before (he states he has had migraine type headaches occasionally, and has had "daily" headaches for few weeks about 3-4 times per week. Previously had been on propranolol for these with improvement. off these for past 6-8 months or so.) Recently seen: Not recently seen Review of Systems Constitutional: denies: Fever, Chills Nose: denies: Rhinorrhea / runny nose, Congestion Throat: denies: Sore throat Respiratory: denies: Cough Skin: denies: Abrasion (s), Laceration (s) Neurologic: reports: Headache (right side mainly with light sensitive and some nausea. He says prior headaches have not been as symptomatic as current headache.), Head injury. denies: Focal weakness, Numbness, Altered mental status PD PAST MEDICAL HISTORY - Past Medical History Past Medical History: Yes Cardiovascular: Other Respiratory: None Neuro: Headaches (several times weekly, and has been on several meds in the past to reduce headaches, with best improvement being from Propranolol.) Endocrine/Autoimmune: None GI: Other : None HEENT: None Psych: Depression, Panic attacks, Post traumatic stress disorder Musculoskeletal: Other Derm: Other - Past Surgical History Past Surgical History: Yes General: EGD, Other HEENT: Myringotomy (tubes) - Present Medications Home Medications: Ambulatory Orders Medication Instructions Recorded Confirmed Fluoxetine HCl [Prozac] 40 mg PO DAILY 03/07/20 09/01/22 Quetiapine Fumarate [Seroquel] 25 mg PO HS PRN 06/22/20 09/01/22 Ondansetron Odt [Zofran] 4 mg TL Q6H PRN #10 tablet 09/01/22 Prazosin HCl [Minipress] 4 mg PO DAILY 09/01/22 09/01/22 Propranolol [Inderal] 10 mg PO DAILY #30 tablet 09/01/22 metFORMIN [Glucophage] 500 mg PO DAILY 09/01/22 09/01/22 traZODone [Desyrel] 100 mg PO HS 09/01/22 09/01/22 - Allergies Allergies/Adverse Reactions: Allergies Allergy/AdvReac Type Severity Reaction Status Date / Time No Known Drug Allergies Allergy Verified 09/01/22 10:42 - Social History Does the pt smoke?: No Smoking Status: Never smoker Does the pt drink ETOH?: Yes Does the pt have substance abuse?: No - Immunizations Immunizations are current?: Yes - POLST Patient has POLST: No PD ED PE NORMAL - Vitals Vital signs reviewed: Yes - General General: Alert and oriented X 3, Well developed/nourished, Other (appears uncomfrtable and is shielding eyes from room lights. ) - HEENT HEENT: PERRL (light seneitive.), Other (tender right parietal area scalp. No lacs nor depressions. 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 ), re- evaluated patient (he is feeling much improved with Zofran and Toradol IM. Can resume him on prior propranolol to decrease frequency of headaches. Current head impact may have some concussive effect or triggered migraine.), considered differential (struck head on corner of furniture, so local force. Has notable headache which might be a triggered migraine. However, due to worse than usual headache related to the injury, will get CT. ), d/w patient Departure - Departure Disposition: 01 Home, Self Care Clinical Impression: Head contusion, Headache Condition: Stable Record reviewed to determine appropriate education?: Yes Prescriptions: Propranolol [Inderal] 10 mg PO DAILY #30 tablet Ondansetron Odt [Zofran] 4 mg TL Q6H PRN #10 tablet PRN Reason: Nausea / Vomiting Comments: Your CT scan does not show any signs of bleeding, fractures, acute abnormalities. You may be feeling slightly off today from a mild concussive effect from hitting your head. It sounds like the injury probably triggered a migraine type headache as well. Given the more frequent occurrences of headache recently, it could be reasonable to resume your propranolol you have been on before. For acute headaches, you can also use ondansetron if needed for nausea and add Tylenol and/or ibuprofen. Follow-up with your primary care if more consistent problems or headaches or if the current headache symptoms have not resolved over the next day or 2. Off work the rest of today to recover from this injury. I sent your prescription to the [facility] pharmacy. Forms: PCP List, Activity restrictions Discharge Date/Time: 09/01/22 12:49
[2022-09-01 10:57] VITALS: BP 145/80
[2022-09-01] MEDS ORDERED: ONDANSETRON ODT 4 MG TABLET TL STA (11:04)
[2022-09-01] MEDS ORDERED: KETOROLAC 30 MG/ML VIAL IM STA (11:04)
--- NOTE | 2022-09-01 12:25 | CT Report ---
PROCEDURE: HEAD WO INDICATIONS: struck head; headache TECHNIQUE: Noncontrast 4.5 mm thick angled axial sections acquired from the foramen magnum to the vertex. For r adiation dose reduction, the following was used: automated exposure control, adjustment of mA and/or kV according to patient size. COMPARISON: None. FINDINGS: Image quality: Excellent. CSF spaces: Basal cisterns are patent. No extra-axial fluid collections. Ventricles are normal in size and shape. Brain: No midline shift. No intracranial masses or hemorrhage. Zafar-white matter interface is norm al. Skull and face: Calvarium and visualized facial bones are intact, without suspicious lesions. Sinuses: Visualized sinuses and mastoids are clear. IMPRESSION: No acute intracranial pathology. No acute skull fracture. Reviewed by: Luis Kenney MD on 09/01/2022 12:24 PM PDT Approved by: Luis Kenney MD on 09/01/2022 12:24 PM PDT Station ID: [id number]
== END 2022-09-01 12:49 | disposition home or self-care (01) ==
LOC: ED 10:34
DX: S00.93XA Contusion of unspecified part of head, initial encounter (principal); X58.XXXA Exposure to other specified factors, initial encounter; Z79.899 Other long term (current) drug therapy
CPT/HCPCS: 70450; 96372; 99284; Q0162

== ENCOUNTER 2022-11-23 10:11 | Emergency (ER) | payer OTHER ==
--- NOTE | 2022-11-23 10:31 | ED Physician Documentation ---
PD HPI MHE - Stated complaint Stated Complaint: ANXIETY ATTACK - Chief complaint Chief Complaint: MHE - History obtained from History obtained from: Patient, EMS - History of Present Illness Primary symptom: Anxiety. No: Suicidal ideation, Homicidal ideation, Psychosis, Off meds Timing - onset: Today (not sure of particular trigger today with development of anxiety attack. States he has some minor legal issues recently but does not feel these are triggering. He gets counseling weekly with last 3 days ago. See psych regularly. Had change in meds a month or more ago with increased Prazosin.) Contributing factors: Work, Legal. No: Substance abuse - ETOH, Substance abuse - drugs Similar symptoms before: Diagnosis (PTSD and anxiety. Depression. No suicidality.) Recently seen: Clinic (counselor 3 days ago. Psychiatry regularly) Review of Systems Constitutional: denies: Fever, Chills Nose: denies: Rhinorrhea / runny nose, Congestion Throat: denies: Sore throat Respiratory: denies: Cough GI: denies: Vomiting, Diarrhea Neurologic: denies: Altered mental status, Headache, Head injury Psychiatric: denies: Suicidal, Homicidal, Insomnia (gets to sleep okay with meds but states has night terros often with awakening. Anxiety during the days.) PD PAST MEDICAL HISTORY - Past Medical History Cardiovascular: Other Respiratory: None Neuro: Headaches (several times weekly, and has been on several meds in the past to reduce headaches, with best improvement being from Propranolol.) Endocrine/Autoimmune: None GI: Other : None HEENT: None Psych: Depression Musculoskeletal: Other Derm: Other - Past Surgical History Past Surgical History: Yes General: EGD, Other HEENT: Myringotomy (tubes) - Present Medications Home Medications: Ambulatory Orders Medication Instructions Recorded Confirmed Fluoxetine HCl [Prozac] 40 mg PO DAILY 03/07/20 09/01/22 Quetiapine Fumarate [Seroquel] 25 mg PO HS PRN 06/22/20 09/01/22 Ondansetron Odt [Zofran] 4 mg TL Q6H PRN #10 tablet 09/01/22 Prazosin HCl [Minipress] 4 mg PO DAILY 09/01/22 09/01/22 Propranolol [Inderal] 10 mg PO DAILY #30 tablet 09/01/22 metFORMIN [Glucophage] 500 mg PO DAILY 09/01/22 09/01/22 traZODone [Desyrel] 100 mg PO HS 09/01/22 09/01/22 LORazepam [Ativan] 1 mg PO BID PRN #10 tablet 11/23/22 - Allergies Allergies/Adverse Reactions: Allergies Allergy/AdvReac Type Severity Reaction Status Date / Time No Known Drug Allergies Allergy Verified 09/01/22 10:42 - Social History Does the pt smoke?: No Smoking Status: Never smoker Does the pt drink ETOH?: Yes Does the pt have substance abuse?: No - Immunizations Immunizations are current?: Yes - POLST Patient has POLST: No PD ED PE NORMAL - Vitals Vital signs reviewed: Yes - General General: Alert and oriented X 3, Well developed/nourished, Other (appears calm but states is feeling very anxious. He has learned relaxing techniques and biofeedback, etc from counselor, but still gets anxiety attacks often. ) - Cardiac Cardiac: RRR, No murmur - Respiratory Respiratory: Clear bilaterally - Abdomen Abdomen: Soft, Non tender - Derm Derm: Normal color, Warm and dry - Neuro Neuro: Alert and oriented X 3, No motor deficit, Normal speech - Psych Psych: Normal mood. No: Normal affect (somewhat anxious.) Results - Vitals Vitals: Vital Signs - 24 hr 11/23/22 10:19 Temperature 36.1 C L Heart Rate 70 Respiratory 18 Rate Blood Pressure 130/101 H O2 Saturation 99 Oxygen O2 Source Room air - Labs Labs: Laboratory Tests 11/23/22 11:05 Sodium 136 Potassium 4.2 Chloride 105 Carbon Dioxide 26 Anion Gap 5.0 L BUN 9 Creatinine 0.8 Estimated GFR (MDRD) 109 Glucose 94 Calcium 9.6 Magnesium 1.9 Total Bilirubin 1.0 AST 17 ALT 29 Alkaline Phosphatase 65 Total Protein 7.5 Albumin 4.6 Globulin 2.9 Albumin/Globulin Ratio 1.6 Lipase 17 TSH 1.99 Ethyl Alcohol < 10.0 PD Medical Decision Making - ED course Complexity details: reviewed old records (visit to ED a month ago for similar. Few months ago for mild head injury. no EWA forms. Still denies any suidical nor homocidal ideations. ), reviewed results (electrolytes normal, particularly sodium. ETOH negative. He denies drug use. ), re-evaluated patient (he is calmer after PO meds here of ATivan and extra dose Prazosin (He says his psych has told him to use extra doses PRN if needed for anxiety). ), considered differential, d/w patient, other (his command officer is present in ED and is okay with pt discharge and will give a ride for him. ) Departure - Departure Disposition: 01 Home, Self Care Clinical Impression: Panic attack as reaction to stress, Anxiety disorder Condition: Stable Record reviewed to determine appropriate education?: Yes Instructions: ED Panic Attack Prescriptions: LORazepam [Ativan] 1 mg PO BID PRN #10 tablet PRN Reason: Anxiety Comments: Continue with your current medications. Your basic blood tests are here without any abnormalities with your blood sugar or electrolytes. Stay well-hydrated. No alcohol. Regular diet and daily exercise. Contact and talk with your counselor this afternoon or tomorrow if they are available. Follow-up with your psychiatrist as planned. Return as needed. In the short-term you can add lorazepam 1 mg twice daily if needed for anxiety. This would be intended short-term. I sent your prescription to your preferred pharmacy. Forms: PCP List Discharge Date/Time: 11/23/22 12:24
[2022-11-23 10:39] VITALS: BP 130/101; O2SAT 99
[2022-11-23] MEDS ORDERED: LORazepam 1 MG TABLET PO STA (10:57)
[2022-11-23] MEDS ORDERED: PRAZOSIN 1 MG CAPSULE PO STA (10:58)
[2022-11-23 11:25] LABS: ALBUMIN 4.6 g/dL (3.2-5.5); ALBUMIN/GLOBULIN RATIO 1.6 (1.0-2.2); ALKALINE PHOSPHATASE 65 IU/L (42-121); ALT ALANINE AMINOTRANSFERASE 29 IU/L (10-60); AST ASPARTATE AMINOTRANSFERASE 17 IU/L (10-42); BUN - BLOOD UREA NITROGEN 9 mg/dL (6-20); CALCIUM 9.6 mg/dL (8.5-10.3); CARBON DIOXIDE - CO2 26 mmol/L (21-32); CHLORIDE 105 mmol/L (101-111); CREATININE 0.8 mg/dL (0.6-1.3); ETOH - ETHANOL < 10.0 mg/dL; GFR - MDRD 109 (>89); GLUCOSE 94 mg/dL (74-104); LIPASE 17 U/L (11-82); MAGNESIUM 1.9 mg/dL (1.7-2.3); POTASSIUM 4.2 mmol/L (3.5-4.5); SODIUM 136 mmol/L (135-145); TOTAL PROTEIN 7.5 g/dL (6.4-8.9)
[2022-11-23 11:38] LABS: THYROID STIMULATING HORMONE 1.99 uIU/mL (0.34-5.60)
== END 2022-11-23 12:24 | disposition home or self-care (01) ==
LOC: EDUNIT# → ED 10:11
DX: F43.0 Acute stress reaction (principal); F41.9 Anxiety disorder, unspecified
CPT/HCPCS: 36415; 80053; 80320; 83690; 83735; 84443; 99283; A9270; J8499

== ENCOUNTER 2023-03-16 19:41 | Emergency (ER) | payer OTHER ==
--- NOTE | 2023-03-16 20:34 | ED Physician Documentation ---
History of Present Illness - Stated complaint Stated Complaint: DIZZY - Chief complaint Chief Complaint: Neuro - History obtained from History obtained from: Patient - History of Present Illness Timing: Today Pain level max: 5 Pain level now: 1 - Additonal information Additional information: 37-year-old male presents to the emergency department stated about 4 to 5 hours ago he felt like his head was "heavy". He states that he felt dizzy. He is unable to describe the dizziness any further. It does not sound like he was experiencing vertigo. There is no change with movement. He states that that occurred when he first stood up to go to the bathroom. No chest pain. No shortness of breath. No cough. No congestion. No ear pain. He states he had a mild headache, 1-2 out of 10. Took Tylenol. No neck pain. No falls. No trauma. No fevers. No recent travel. No focal neurological deficits. No n umbness or tingling. No medication changes. The headache was gradual in onset, holocranial. Review of Systems Constitutional: denies: Fever, Chills Eyes: denies: Photophobia Ears: denies: Ear pain Nose: denies: Rhinorrhea / runny nose, Congestion Cardiac: denies: Chest pain / pressure, Palpitations Respiratory: denies: Dyspnea, Cough GI: denies: Abdominal Pain, Nausea, Vomiting, Diarrhea Skin: denies: Rash Musculoskeletal: denies: Neck pain, Back pain Neurologic: denies: Seizure, Confused, Head injury, LOC PD PAST MEDICAL HISTORY - Past Medical History Past Medical History: Yes Cardiovascular: Other Respiratory: None Neuro: Headaches Endocrine/Autoimmune: None GI: Other : None HEENT: None Psych: Depression Musculoskeletal: Other Derm: Other - Past Surgical History Past Surgical History: Yes General: EGD, Other HEENT: Myringotomy (tubes) - Present Medications Home Medications: Ambulatory Orders Medication Instructions Recorded Confirmed Fluoxetine HCl [Prozac] 40 mg PO DAILY 03/07/20 03/16/23 metFORMIN [Glucophage] 500 mg PO BID 09/01/22 03/16/23 LORazepam [Ativan] 1 mg PO BID PRN #10 tablet 11/23/22 03/16/23 Prazosin HCl [Minipress] 5 mg PO HS 03/16/23 03/16/23 Propranolol ER [Inderal LA] 80 mg PO DAILY 03/16/23 03/16/23 Quetiapine Fumarate [Quetiapine 50 mg PO HS 03/16/23 03/16/23 Fumarate ER] - Allergies Allergies/Adverse Reactions: Allergies Allergy/AdvReac Type Severity Reaction Status Date / Time No Known Drug Allergies Allergy Verified 03/16/23 19:45 - Social History Does the pt smoke?: No Smoking Status: Never smoker Does the pt drink ETOH?: Yes Does the pt have substance abuse?: No - Immunizations Immunizations are current?: Yes - POLST Patient has POLST: No PD ED PE NORMAL - Vitals Vital signs reviewed: Yes - General General: Alert and oriented X 3, No acute distress, Well developed/nourished - HEENT HEENT: PERRL, Ears normal, Moist mucous membranes, Pharynx benign - Neck Neck: Supple, no meningeal sign, No bony TTP - Cardiac Cardiac: RRR, Strong equal pulses - Respiratory Respiratory: No respiratory distress, Clear bilaterally - Abdomen Abdomen: Soft, Non tender, Non distended - Back Back: No CVA TTP, No spinal TTP - Derm Derm: Warm and dry - Extremities Extremities: No edema - Neuro Neuro: Alert and oriented X 3, hot oiler 2-12 intact, No motor deficit, No sensory deficit, Normal speech, Other (Normal cerebellar test. Normal gait.) Eye Opening: Spontaneous Motor: Obeys Commands Verbal: Oriented GCS Score: 15 - Psych Psych: Normal mood, Normal affect Results - Vitals Vitals: Vital Signs - 24 hr 03/16/23 03/16/23 19:46 21:09 Temperature 36.8 C Heart Rate 90 73 Respiratory 16 16 Rate Blood Pressure 136/90 H 132/78 H O2 Saturation 98 97 Oxygen O2 Source Room air - EKG (time done) 2018 EKG releavant findings:: EKG personally interpreted by author of this note. Relevant findings are: Rate: Rate (enter#) (66) Rhythm: NSR [place]: Normal Intervals: Normal [place] QRS: Normal Ischemia: Normal ST segments, Q waves (III, aVF) - Labs Labs: Laboratory Tests 03/16/23 20:20 POC Whole Bld Glucose 108 H PD Medical Decision Making - ED course Complexity details: reviewed results, re-evaluated patient, considered differential, d/w patient ED course: No acute findings on EKG. No acute findings on blood glucose testing. Normal on telemetry monitoring. Asymptomatic here. Normal neuroexam. No dizziness. Headache resolved. No indication for further workup in the emergency department. No indication for emergent neuroimaging. Patient will follow-up with his PCP for further care. Patient counseled regarding signs and symptoms for which I believe and urgent re-evaluation would be necessary. Patient with good understanding of and agreement to plan and is comfortable going home at this time This document was made in part using voice recognition software. While efforts are made to proofread this document, sound alike and grammatical errors may occur. Departure - Departure Disposition: Home, Self Care Clinical Impression: Dizziness Headache Qualifiers: Headache type: unspecified Headache chronicity pattern: unspecified pattern Intractability: not intractable Qualified Code(s): R51.9 - Headache, unspecified Condition: Good Instructions: ED Dizziness [facility] Follow-Up: KEERTHI WRIGHT NP [Primary Care Provider] - Within 1 week Comments: The cause of your symptoms is unclear tonight. Please follow-up with your doctor for further care. Your testing does not show any acute abnormalities today. You can use Motrin or Tylenol for headaches. Please return if you worsen. Forms: PCP List Discharge Date/Time: 03/16/23 21:12
[2023-03-16 21:13] VITALS: BP 132/78; O2SAT 97
== END 2023-03-16 21:12 | disposition home or self-care (01) ==
LOC: ED 19:41
DX: R42 Dizziness and giddiness (principal); R51.9 Headache, unspecified
CPT/HCPCS: 93005; 99283

== ENCOUNTER 2023-07-11 04:47 | Emergency (ER) | payer OTHER ==
[2023-07-11 05:06] VITALS: O2SAT 98
--- NOTE | 2023-07-11 05:50 | ED Physician Documentation ---
PD HPI CHEST PAIN - Stated complaint Stated Complaint: CHEST PX - Chief complaint Chief Complaint: Cardiac - History obtained from History obtained from: Patient - Additional information Additional information: The patient comes to the emergency department chief complaint of chest discomfort on the left side that started about an hour ago and woke him up from sleep. The patient states it is a dull pressure pain that is located around his left nipple area. He states that he also feels some muscle tension in his left neck. The patient denies any nausea or shortness of breath. The patient states he has not had a cough, lower extremity edema, or unilateral lower extremity pain recently. No long trips or surgeries. He is not a smoker. He denies any history of hypertension or hyperlipidemia. He states he is prediabetic. The patient states his grandpa of a heart attack when he was around 61 but denies any family history of anyone with young MIs. 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 The patient also saw a red lead burner in [place]. All of this was around 2 years ago. PD PAST MEDICAL HISTORY - Past Medical History Past Medical History: Yes Cardiovascular: Other Respiratory: None Neuro: Headaches Endocrine/Autoimmune: None GI: Other : None HEENT: None Psych: Depression Musculoskeletal: Other Derm: Other - Past Surgical History Past Surgical History: Yes General: EGD, Other HEENT: Myringotomy (tubes) - Present Medications Home Medications: Ambulatory Orders Medication Instructions Recorded Confirmed Fluoxetine HCl [Prozac] 40 mg PO DAILY 03/07/20 03/16/23 metFORMIN [Glucophage] 500 mg PO BID 09/01/22 03/16/23 LORazepam [Ativan] 1 mg PO BID PRN #10 tablet 11/23/22 03/16/23 Prazosin HCl [Minipress] 5 mg PO HS 03/16/23 03/16/23 Propranolol ER [Inderal LA] 80 mg PO DAILY 03/16/23 03/16/23 Quetiapine Fumarate [Quetiapine 50 mg PO HS 03/16/23 03/16/23 Fumarate ER] - Allergies Allergies/Adverse Reactions: Allergies Allergy/AdvReac Type Severity Reaction Status Date / Time No Known Drug Allergies Allergy Verified 07/11/23 05:03 - Social History Does the pt smoke?: No Smoking Status: Never smoker Does the pt drink ETOH?: Yes Does the pt have substance abuse?: No - Immunizations Immunizations are current?: Yes - POLST Patient has POLST: No PD ED PE NORMAL - Vitals Vital signs reviewed: Yes - General General: Alert and oriented X 3, No acute distress, Well developed/nourished, Other (Slightly obese,) - HEENT HEENT: Atraumatic, EOMI, Moist mucous membranes - Neck Neck: Supple, no meningeal sign - Cardiac Cardiac: RRR, No murmur, Strong equal pulses - Respiratory Respiratory: No respiratory distress, Clear bilaterally - Abdomen Abdomen: Soft, Non tender, Non distended - Derm Derm: Normal color, Warm and dry, No rash - Extremities Extremities: No deformity, No edema, No calf tenderness / cord - Neuro Neuro: Other (Grossly intact) - Psych Psych: Normal mood, Normal affect Results - Vitals Vitals: Vital Signs - 24 hr 07/11/23 07/11/23 04:59 05:15 Temperature 36.9 C Heart Rate 64 58 L Respiratory 18 15 Rate Blood Pressure 149/92 H 133/88 H O2 Saturation 98 98 Oxygen O2 Source Room air - EKG (time done) 0507 EKG releavant findings:: EKG personally interpreted by author of this note. Relevant findings are: Rate: Rate (enter#) (60) Rhythm: NSR [place]: Normal Intervals: Normal [place] QRS: Normal Ischemia: Normal ST segments, Non specific changes Compare to prior EKG: Unchanged from prior EKG Computer interpretation: Agree with computer PD Medical Decision Making - ED course Complexity details: reviewed results, re-evaluated patient, considered differential, d/w patient ED course: The patient was worked up with EKG and chest x-ray, both of which were unremarkable. I discussed at length with the patient that he is very low risk for either coronary artery disease or DVT, and that he does not really have symptoms that indicate either one of these. Furthermore, he does not have symptoms or findings that would be concerning for aortic pathology or PE. As such, I have discussed with the patient that I do not feel that laboratory studies are likely to yield anything, based on the atypical nature of the patient's discomfort as well as his lack of risk factors. Nonetheless, I am willing to go down this road and work the patient up with labs if he would prefer. The patient states he would prefer not. Departure - Departure Disposition: 01 Home, Self Care Clinical Impression: Chest wall pain Condition: Stable Instructions: ED Chest Pain Atypical Unkn Cause Comments: Your EKG and chest x-ray look great. As we discussed, you are extremely low risk for any of the more serious potential causes of chest pain. Furthermore, you had a stress test within the last couple of years which was negative this is also reassuring. Is not clear exactly what is causing your pain but there is no evidence of an emergent cause. Please follow-up with your primary doctor for further concerns. Forms: PCP List
[2023-07-11] MEDS ORDERED: KETOROLAC 60 MG/2 ML VIAL IM STA (06:38)
[2023-07-11 06:53] VITALS: BP 129/96
--- NOTE | 2023-07-11 08:40 | XRAY Report ---
PROCEDURE: Chest 1V INDICATIONS: chest pain TECHNIQUE: One view of the chest was acquired. COMPARISON: 06/22/2020. FINDINGS: Surgical changes and devices: None. Lungs and pleura: No pleural effusions or pneumothorax. Lungs are clear. Mediastinum: Mediastinal contours appear normal. Heart size is normal. Bones and chest wall: No suspicious bony lesions. Overlying soft tissues appear unremarkable. IMPRESSION: No acute cardiopulmonary process. Findings are concordant with preliminary interpretation provided by [facility]. Reviewed by: Tomas Contreras MD on 07/11/2023 8:38 AM PDT Approved by: Tomas Contreras MD on 07/11/2023 8:38 AM PDT Station ID: [id number]
== END 2023-07-11 06:44 | disposition home or self-care (01) ==
LOC: ED 04:47
DX: R07.89 Other chest pain (principal); Z79.84 Long term (current) use of oral hypoglycemic drugs; Z79.899 Other long term (current) drug therapy
CPT/HCPCS: 93005; 99283; 99284

== ENCOUNTER 2023-07-12 08:45 | Outpatient (CLI) | payer OTHER ==
--- NOTE | 2023-07-12 14:00 | MRI Report ---
PROCEDURE: Lumbar Spine WO INDICATIONS: DORSALGIA TECHNIQUE: Noncontrast sagittal T1 spin echo and T2 fast echo, sagittal STIR, axial T1 and T2 fast spin echo thr ough the lumbar spine. In cases with scoliosis, additional coronal T2 fast spin echo may be performe d. COMPARISON: Lumbar spine plain films dated 09/06/2018. FINDINGS: Image quality: Excellent. Alignment and Curvature: There is normal bony alignment. Partial lumbarization of S1. Bone Marrow: Marrow is of normal overall signal. No acute vertebral body compression fractures. Spinal Cord: Conus medullaris terminates at the L1-L2 level. Visualized cord demonstrates normal si gnal and size. Paraspinous Soft Tissues: No paravertebral masses. T12-L1: Imaged in sagittal plane only. No canal stenosis or foraminal stenosis. L1-L2: Normal in appearance. L2-L3: Normal in appearance. L3-L4: Normal in appearance. L4-L5: Mild facet hypertrophy. No canal stenosis or foraminal stenosis. L5-S1: Annulus tear plus mild disc bulge. Facet hypertrophy. No canal stenosis or foraminal stenosi s. S1-S2: Partial lumbarization of S1. Otherwise unremarkable. IMPRESSION: 1. Partial lumbarization of S1. If surgery is planned in the future in this patient, careful correlat ion for correct surgical level is required. 2. At L5-S1, there is annulus tear plus mild disc bulge. In the acute setting, annulus tears can be q uite symptomatic. Commonly, annulus tears are remote and incidental. 3. No canal stenosis. No foraminal stenosis. 4. Mild lower lumbar facet arthropathy. Reviewed by: Tomas Contreras MD on 07/12/2023 1:59 PM PDT Approved by: Tomas Contreras MD on 07/12/2023 1:59 PM PDT Station ID: [id number]
== END 2023-07-12 08:46 | disposition home or self-care (01) ==
LOC: DI 08:45
PROVIDERS: ATTEND Nurse Practitioner Family
DX: M47.817 Spondylosis without myelopathy or radiculopathy, lumbosacral region (principal); M51.37 Other intervertebral disc degeneration, lumbosacral region; M47.816 Spondylosis without myelopathy or radiculopathy, lumbar region

== ENCOUNTER 2023-10-18 14:11 | Emergency (ER) | payer OTHER ==
[2023-10-18 14:29] VITALS: O2SAT 98
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
[2023-10-18] MEDS: DEXAMETHASONE 10 MG/ML VIAL IM STA (15:29)
[2023-10-18] MEDS: HYDROmorphone 1 MG/ML CARPUJECT IM STA (15:29)
[2023-10-18] MEDS: KETOROLAC 60 MG/2 ML VIAL IM STA (15:29)
[2023-10-18 16:19] VITALS: BP 149/94
== END 2023-10-18 16:56 | disposition home or self-care (01) ==
LOC: ED 14:11
DX: M54.50 Low back pain, unspecified (principal); M62.830 Muscle spasm of back
CPT/HCPCS: 96372; 99283; J1170